=== PATIENT | female | born 1950 | race Caucasian/White ===

== ENCOUNTER → 2017-04-12 | Outpatient (CLI) | payer MEDICARE ==
[2017-04-12 15:13] LABS: Blood Urea Nitrogen 17 mg/dL (7-17)
== END | disposition home or self-care (01) ==
LOC: LABWHC1 14:44
PROVIDERS: ATTEND Otolaryngology
DX: H93.3X9 Disorders of unspecified acoustic nerve (principal); H93.19 Tinnitus, unspecified ear; H91.90 Unspecified hearing loss, unspecified ear; H91.92 Unspecified hearing loss, left ear; H70.90 Unspecified mastoiditis, unspecified ear
CPT/HCPCS: 36415; 82565; 84520

== ENCOUNTER → 2017-04-28 | Outpatient (CLI) | payer MEDICARE, OTHER ==
--- NOTE | 2017-04-28 09:51 | CT ---
EXAMINATION TYPE: CT iac wo con DATE OF EXAM: 04/28/2017 COMPARISON: NONE HISTORY: Lt ear ear infection 5 weeks ago with hearing loss CT DLP: 150 mGycm. Automated Exposure Control for Dose Reduction was Utilized. TECHNIQUE: CT scan of internal auditory canal is performed without contrast, thin cut axial images ar e obtained, coronal reformatted images are also reviewed. FINDINGS: The external auditory canals are patent bilaterally. Mastoid air cells show near complete opacification on the left with several air-fluid levels including involvement of the left petrous ape x. Right mastoid air cells show no suspicious opacification including pneumatized petrous apex. The m iddle ear ossicles are symmetric and unremarkable. There is evidence of surrounding soft tissue dens ity along superior, lateral, and inferior margin on the left seen best coronal images 88 through 90. The scutum is preserved bilaterally. The cochlea and the semicircular canals are symmetric and unre markable. Vestibular aqueduct and internal carotid canal appear unremarkable. Temporomandibular joints are maintained bilaterally. Visualized paranasal sinuses are grossly clear. Visualized portion brain parenchyma is felt within normal limits. IMPRESSION: Left-sided mastoiditis including involvement of petrous apex, some middle ear spread of i nfection is present.
== END | disposition home or self-care (01) ==
LOC: RADCTMAIN 08:53
PROVIDERS: ATTEND Otolaryngology
DX: H70.92 Unspecified mastoiditis, left ear (principal)
CPT/HCPCS: 70480

== ENCOUNTER → 2017-06-15 | Outpatient (CLI) | payer MEDICARE, OTHER ==
--- NOTE | 2017-06-15 09:43 | CT ---
EXAMINATION TYPE: CT iac wo con DATE OF EXAM: 06/15/2017 COMPARISON: 04/28/2017 HISTORY: Mastoiditis CT DLP: 142.7mGycm Automated exposure control for dose reduction was used. FINDINGS: The external auditory canals are patent bilaterally. Again noted is moderate opacification of the left-sided mastoid air cells essentially unchanged relative to the previous study. There is pe rsistent but improving opacification of the left petrous apex. Right-sided mastoid air cells are well -aerated at this time. Previously noted involvement of the left-sided attic with soft tissue surround ing the ossicular chain has resolved. The middle ear ossicles are symmetric and unremarkable. There is no evidence of suspicious surrounding soft tissue density to suggest cholesteatoma. The scutum is preserved bilaterally. The cochlea and the semicircular canals are symmetric and unremarkable. Ves tibular aqueduct and internal carotid canal appear unremarkable. Temporomandibular joints are mainta ined bilaterally. IMPRESSION: 1. Persistent features of left-sided mastoiditis. Persistent but improving opacification of the left petrous apex. 2.Previously noted involvement of the left-sided attic with soft tissue surrounding the ossicular roddy in has resolved.
== END | disposition home or self-care (01) ==
LOC: RADCTMAIN 09:11
PROVIDERS: ATTEND Otolaryngology
DX: H70.92 Unspecified mastoiditis, left ear (principal)
CPT/HCPCS: 70480

== ENCOUNTER → 2018-06-27 | Outpatient (CLI) | payer MEDICARE, OTHER ==
--- NOTE | 2018-06-28 08:58 | BD ---
EXAMINATION TYPE: Axial Bone Density DATE OF EXAM: 06/27/2018 COMPARISON: 2014 CLINICAL HISTORY: Age related osteoporosis Height: 5 FT 2 IN Weight: 145 FRAX RISK QUESTIONS: RISK FACTORS HISTORY OF: Active: YES Postmenopausal woman: AGE [age] Lost more than 2 inches in height since high school: YES MEDICATIONS: Additional Medications: DIARETIC, Additional History: EXAM MEASUREMENTS: Bone mineral densitometry was performed using the Crucell System. Bone mineral density as measured about the Lumbar spine is: ----- L1-L4(G/cm2): 1.174 T Score Values are as follows: ----- L2: -0.4 ----- L3: -1.1 ----- L4: 0.4 ----- L1-L4: -0.1 Bone mineral density has: DECREASED -2.7% SINCE STUDY OF 2014 Bone mineral density about the R hip (g/cm2): 0.757 Bone mineral density about the L hip (g/cm2): 0.819 T Score values are as follows: -----R Neck: -2.0 -----L Neck: -1.6 -----R Total: -1.7 -----L Total: -1.4 Bone mineral density has: DECREASED -5.3%SINCE STUDY OF 2014 IMPRESSION: Osteopenia (T Score between -2.5 and -1). There is slightly increased risk of fracture and the patient may be considered for treatment. Re-Screen 2-5 years. NOTE: T-SCORE=SD OF THE YOUNG ADULT MEAN.
--- NOTE | 2018-06-28 14:39 | MM ---
Reason for exam: screening (asymptomatic). Last mammogram was performed 3 years and 9 months ago. History: Patient is postmenopausal. Family history of breast cancer in sister at age 59. Took hormonal contraceptives for 15 years. Physical Findings: A clinical breast exam by your physician is recommended on an annual basis and results should be correlated with mammographic findings. MG 3D Screening Mammo W/Cad Bilateral CC and MLO view(s) were taken. Prior study comparison: September 27, 2014, bilateral MG screening mammo w CAD. December 20, 2008, bilateral diagnostic digital mammog. The breast tissue is heterogeneously dense. This may lower the sensitivity of mammography. No suspicious abnormality. No significant changes when compared with prior studies. ASSESSMENT: Negative, BI-RAD 1 RECOMMENDATION: Routine screening mammogram of both breasts in 1 year.
== END | disposition home or self-care (01) ==
LOC: RADMAMWWP 15:24
PROVIDERS: ATTEND Internal Medicine Geriatric Medicine
DX: Z12.31 Encounter for screening mammogram for malignant neoplasm of breast (principal); M85.851 Other specified disorders of bone density and structure, right thigh; M85.852 Other specified disorders of bone density and structure, left thigh; M85.88 Other specified disorders of bone density and structure, other site
CPT/HCPCS: 77063; 77067; 77080

== ENCOUNTER 2019-06-09 01:50 | Observation (INO) | payer MEDICARE, OTHER ==
--- NOTE | 2019-06-09 02:28 | ED ---
Chest Pain HPI - General Chief Complaint: Chest Pain Stated Complaint: Chest Pain Time Seen by Provider: 06/09/19 02:05 Source: patient, family Mode of arrival: wheelchair Limitations: no limitations - History of Present Illness Initial Comments: This patient is 68-year-old woman who was awakened from sleep approximately 1:30 this morning with severe substernal pain that she is describing as a tightness there. She states that the pain was severe she did not note any worsening or relieving factors. She also had an episode of vomiting and when the pain was not resolving decided to come here. She did take 481 mg aspirin at home before leaving there. The patient states that by the time she was here the pain had subsided. MD Complaint: chest pain Onset/Timin -: minutes(s) Onset: during rest, awoke with symptoms Pain Location: substernal Pain Radiation: none Severity: severe Quality: tightness Consistency: now resolved Improves With: nothing Worsens With: nothing Anginal Symptoms: vomiting, diaphoresis Treatments Prior to Arrival: aspirin - Related Data On Oral Contraceptives: No Home Medications Medication Instructions Recorded Confirmed Ibuprofen [Motrin] 200 - 400 mg PO HS PRN 04/18/15 07/16/15 Allergies Allergy/AdvReac Type Severity Reaction Status Date / Time codeine AdvReac Vomiting Verified 06/09/19 01:57 morphine AdvReac Vomiting Verified 06/09/19 01:57 Review of Systems ROS Statement: Those systems with pertinent positive or pertinent negative responses have been documented in the HPI. ROS Other: All systems not noted in ROS Statement are negative. Constitutional: Denies: fever, chills Respiratory: Denies: cough, dyspnea Cardiovascular: Reports: chest pain. Denies: palpitations, orthopnea, edema, syncope Gastrointestinal: Reports: nausea, vomiting. Denies: abdominal pain, diarrhea, hematemesis Genitourinary: Denies: dysuria, hematuria Musculoskeletal: Denies: back pain Skin: Denies: rash Neurological: Denies: headache, weakness, numbness EKG Findings - EKG Comments: EKG Findings:: T inversions in lead V2 V3. - EKG Results: EKG: interpreted by ERMD, sinus rhythm, normal axis, normal QRS Past Medical History Past Medical History: Osteoarthritis (OA) Additional Past Medical History / Comment(s): Slight RA, states has a sore throat from having Bronchitis one month ago. History of Any Multi-Drug Resistant Organisms: None Reported Past Surgical History: Section, Orthopedic Surgery, Tubal Ligation Additional Past Surgical History / Comment(s): 04/23/15LEFT CATARACT. Colonoscopy, cyst removed L hand ,Carpal Tunnel R hand, Retinal repair 1 yr. ago. Past Anesthesia/Blood Transfusion Reactions: Postoperative Nausea & Vomiting (PONV) Additional Past Anesthesia/Blood Transfusion Reaction / Comment(s): Severe N/V for approx. 12 hrs. after surgery. Past Psychological History: No Psychological Hx Reported Smoking Status: Former smoker Past Alcohol Use History: Rare Past Drug Use History: Marijuana - Past Family History Father Family Medical History: Cancer Additional Family Medical History / Comment(s): Pancreatic Mother Family Medical History: No Reported History General Exam Limitations: no limitations Course Vital Signs 06/09/19 06/09/19 06/09/19 01:54 02:05 02:09 Temperature 98.1 F Pulse Rate 65 58 L Respiratory 16 18 Rate Blood Pressure 171/88 169/86 169/86 O2 Sat by Pulse 94 L 98 98 Oximetry 06/09/19 06/09/19 06/09/19 02:10 02:20 02:30 Temperature Pulse Rate 57 L 66 59 L Respiratory 10 L 21 9 L Rate Blood Pressure 169/86 169/86 169/86 O2 Sat by Pulse 98 99 97 Oximetry 06/09/19 06/09/19 06/09/19 02:40 02:50 03:00 Temperature Pulse Rate 61 60 Respiratory 15 5 L Rate Blood Pressure 169/86 169/86 169/86 O2 Sat by Pulse 93 L 94 L Oximetry 06/09/19 06/09/19 06/09/19 03:10 03:20 03:30 Temperature Pulse Rate 59 L 58 L 60 Respiratory 7 L 16 9 L Rate Blood Pressure 169/86 169/86 169/86 O2 Sat by Pulse 95 95 95 Oximetry 06/09/19 06/09/19 06/09/19 03:40 03:50 04:00 Temperature Pulse Rate 60 58 L Respiratory 9 L 4 L Rate Blood Pressure 169/86 169/86 169/86 O2 Sat by Pulse 95 96 Oximetry 06/09/19 06/09/19 06/09/19 04:10 04:20 04:30 Temperature Pulse Rate 60 68 63 Respiratory 8 L 16 11 L Rate Blood Pressure 169/86 169/86 169/86 O2 Sat by Pulse 95 95 95 Oximetry 06/09/19 06/09/19 06/09/19 04:40 04:50 05:00 Temperature Pulse Rate 62 62 63 Respiratory 16 11 L 23 Rate Blood Pressure 169/86 169/86 169/86 O2 Sat by Pulse 96 95 94 L Oximetry 06/09/19 06/09/19 05:10 05:20 Temperature Pulse Rate 59 L 63 Respiratory 13 15 Rate Blood Pressure 169/86 169/86 O2 Sat by Pulse 95 95 Oximetry Chest Pain [facility] Patient is 68-year-old woman with episode of substernal chest pain associated with diaphoresis and nausea. Her symptoms have resolved and she remained symptom-free. The initial workup is negative. I discussed her case with her primary physician Dr. Zhang, who will admit for telemetry monitoring, serial cardiac enzymes and cardiology consultation. Disposition Clinical Impression: Chest pain Disposition: [facility] Condition: Good Referrals: Josué Zhang MD [Primary Care Provider] - 1-2 days
[2019-06-09 02:51] LABS: Basophils # (A) 0.1 k/uL (0-0.2); Basophils % (A) 1 %; Eosinophils # (A) 0.3 k/uL (0-0.7); Eosinophils % (A) 3 %; HCT 46.4 % (34.0-46.0); HGB 15.1 gm/dL (11.4-16.0); Lymphocytes # (A) 4.6 k/uL (1.0-4.8); Lymphocytes % (A) 56 %; MCH 31.2 pg (25.0-35.0); MCHC 32.7 g/dL (31.0-37.0); MCV 95.5 fL (80.0-100.0); Mean Platelet Volume 7.6; Monocytes # (A) 0.3 k/uL (0-1.0); Monocytes % (A) 4 %; Neutrophils # (A) 2.7 k/uL (1.3-7.7); Neutrophils % (A) 33 %; Platelet Count 236 k/uL (150-450); RBC 4.85 m/uL (3.80-5.40); RDW 12.6 % (11.5-15.5); WBC 8.2 k/uL (3.8-10.6)
--- NOTE | 2019-06-09 02:59 | XR ---
EXAMINATION TYPE: XR chest 2V DATE OF EXAM: 06/09/2019 COMPARISON: NONE HISTORY: Chest pain TECHNIQUE: 2 views FINDINGS: Heart and mediastinum are normal. Lungs are clear. Diaphragm is normal. Bony thorax is inta ct. There are chest leads. IMPRESSION: Normal chest.
[2019-06-09 03:03] LABS: Albumin 4.4 g/dL (3.5-5.0); Calcium 10.2 mg/dL (8.4-10.2); Potassium 3.7 mmol/L (3.5-5.1); Total Bilirubin 0.3 mg/dL (0.2-1.3); Total Protein 7.4 g/dL (6.3-8.2)
[2019-06-09 03:22] LABS: Partial Thromboplastin Time 21.9 sec (22.0-30.0); Prothrombin Time 10.6 sec (9.0-12.0)
[2019-06-09 03:25] LABS: D-Dimer 1.27 mg/L FEU (<0.60)
--- NOTE | 2019-06-09 05:13 | CT ---
EXAMINATION TYPE: CT chest angio for PE DATE OF EXAM: 06/09/2019 COMPARISON: None HISTORY: PE CT DLP: 326.4 mGycm Automated exposure control for dose reduction was used. CONTRAST: Performed with IV Contrast, patient injected with 70 mL of Isovue 370. There are 3-D post processed images. Heart appears normal in size. There is no pericardial effusion. There is some coronary artery calcifi cation. Thoracic aorta shows mild atheromatous change. The ascending aorta measures 3.6 cm. There is no dissection. There is no mediastinal adenopathy. There are no hilar masses. There is normal contras t opacification of the pulmonary arteries. There are no filling defects. The lungs are clear of consolidation. There is no evidence of a pulmonary mass. There is no pleural e ffusion. Upper abdominal soft tissues are intact. There are calcified multiple small gallstones. IMPRESSION: No evidence of pulmonary embolism. No evidence of any significant lung disease. Cholelithiasis.
[2019-06-09] MEDS ORDERED: NITROGLYCERIN SL TABS 0.4 MG TAB SUBLINGUAL PRN ×2 (06:08→08:45)
[2019-06-09] MEDS ORDERED: ATORVASTATIN 80 MG TAB PO STA ×2 (08:15→08:45)
--- NOTE | 2019-06-09 08:42 | US ---
EXAMINATION TYPE: US abdomen limited DATE OF EXAM: 06/09/2019 COMPARISON: NONE CLINICAL HISTORY: possible biliary colic, attention RUQ. EXAM MEASUREMENTS: Liver Length: 11.2 cm Gallbladder Wall: 0.2 cm CBD: 0.7 centimeters distally, however more proximally time bile duct measures 0.4 cm and is within normal limits. Right Kidney: 9.3 x 4.6 x 5.2cm Pancreas: Tail obscured by overlying bowel gas Liver: wnl Gallbladder: cholelithiasis Evidence for sonographic Morton's sign: no CBD: Prominent proximally however nondilated distally. Right Kidney: wnl IMPRESSION: There is cholelithiasis and distal common bile duct prominence, however no other evidence of acute cholecystitis. Follow-up HIDA scan with CCK could evaluate for biliary dyskinesia.
[2019-06-09] MEDS ORDERED: ALPRAZolam 0.5 MG TAB PO PRN (08:45)
[2019-06-09] MEDS ORDERED: ALPRAZolam 0.25 MG TAB PO PRN (08:45)
[2019-06-09] MEDS ORDERED: SODIUM CHLORIDE 0.9% 1,000 ML in EMPTY BAG 1 BAG IV ONE (08:45)
[2019-06-09] MEDS ORDERED: ASPIRIN 325 MG TAB PO STA (08:45)
--- NOTE | 2019-06-09 08:48 | P.CRDCN ---
History of Present Illness Consult date: 06/09/19 Requesting physician: Josué Zhang Consult reason: chest pain Chief complaint: Chest pain History of present illness: This is a 68-year-old female with documented history of hyperlipidemia , she stated that she had been placed on statins in the past but has not been taking them recently. She quit smoking approximately 30 years ago, no hypertension, no diabetes. Patient presented to the hospital with symptoms of midsternal chest tightness, she had radiation to her jaw and to bilateral arms. This lasted approximately 30 minutes in duration. According to the patient, she also experienced nausea and an episode of vomiting with this. Patient was seen in the emergency room by Dr. Jay. She takes no medications at home other than when necessary ibuprofen. Her EKG on presentation here showed a normal sinus rhythm with anterior lateral ST-T wave changes. Chest x-ray did not reveal any acute findings, CTA of the chest did not reveal any evidence of pulmonary embolism. Blood pressure on arrival here 168/86 with a heart rate in the 60s. This morning's blood pressure 122/70, 95% on room air. Laboratory data was reviewed, white blood cell count 8.2, hemoglobin 15.1, platelet count 236. D-dimer 1.2 sodium 138, potassium 3.7, chloride 103, CO2 27, BUN 23, creatinine 0.9. Magnesium 2.0 and initial troponin was 0.012. After the patient was seen and evaluated by Dr. Jay's recommendations were that the patient undergo cardiac catheterization today. This will be performed by Dr. Mehta. Past Medical History Past Medical History: Osteoarthritis (OA) Additional Past Medical History / Comment(s): Slight RA, states has a sore throat from having Bronchitis one month ago. History of Any Multi-Drug Resistant Organisms: None Reported Past Surgical History: Section, Orthopedic Surgery, Tubal Ligation Additional Past Surgical History / Comment(s): 04/23/15LEFT CATARACT. Colonoscopy, cyst removed L hand ,Carpal Tunnel R hand, Retinal repair 1 yr. ago. Past Anesthesia/Blood Transfusion Reactions: Postoperative Nausea & Vomiting (PONV) Additional Past Anesthesia/Blood Transfusion Reaction / Comment(s): Severe N/V for approx. 12 hrs. after surgery. Past Psychological History: No Psychological Hx Reported Smoking Status: Former smoker Past Alcohol Use History: Rare Past Drug Use History: Marijuana - Past Family History Father Family Medical History: Cancer Additional Family Medical History / Comment(s): Pancreatic Mother Family Medical History: No Reported History Medications and Allergies Home Medications Medication Instructions Recorded Confirmed Type Ibuprofen [Motrin] 200 - 400 mg PO HS PRN 04/18/15 06/09/19 History Triamterene-Hctz 37.5-25Mg 1 cap PO Q48H PRN 06/09/19 06/09/19 History [Dyazide 37.5-25 Capsule] Allergies Allergy/AdvReac Type Severity Reaction Status Date / Time codeine AdvReac Vomiting Verified 06/09/19 07:56 morphine AdvReac Vomiting Verified 06/09/19 07:56 Physical Exam Vitals: Vital Signs Temp Pulse Resp BP Pulse Ox 06/09/19 08:30 60 9 L 128/77 95 06/09/19 08:29 60 9 L 128/77 95 06/09/19 07:20 60 9 L 123/77 95 06/09/19 07:10 63 11 L 123/77 95 06/09/19 07:00 62 13 123/77 93 L 06/09/19 06:50 61 14 169/86 93 L 06/09/19 06:40 60 13 169/86 92 L 06/09/19 06:30 60 15 169/86 92 L 06/09/19 06:20 64 16 169/86 92 L 06/09/19 06:10 64 13 169/86 93 L 06/09/19 06:00 62 13 169/86 96 06/09/19 05:50 63 29 H 169/86 96 06/09/19 05:40 61 19 169/86 95 06/09/19 05:30 60 10 L 169/86 96 06/09/19 05:20 63 15 169/86 95 06/09/19 05:10 59 L 13 169/86 95 06/09/19 05:00 63 23 169/86 94 L 06/09/19 04:50 62 11 L 169/86 95 06/09/19 04:40 62 16 169/86 96 06/09/19 04:30 63 11 L 169/86 95 06/09/19 04:20 68 16 169/86 95 06/09/19 04:10 60 8 L 169/86 95 06/09/19 04:00 169/86 06/09/19 03:50 58 L 4 L 169/86 96 06/09/19 03:40 60 9 L 169/86 95 06/09/19 03:30 60 9 L 169/86 95 06/09/19 03:20 58 L 16 169/86 95 06/09/19 03:10 59 L 7 L 169/86 95 06/09/19 03:00 60 5 L 169/86 94 L 06/09/19 02:50 61 15 169/86 93 L 06/09/19 02:40 169/86 06/09/19 02:30 59 L 9 L 169/86 97 06/09/19 02:20 66 21 169/86 99 06/09/19 02:10 57 L 10 L 169/86 98 06/09/19 02:09 58 L 18 169/86 98 06/09/19 02:05 169/86 98 06/09/19 01:54 98.1 F 65 16 171/88 94 L Intake and Output 06/08/19 06/09/19 06/09/19 22:59 06:59 14:59 Other: Weight 73.936 kg PHYSICAL EXAMINATION: GENERAL: 68-year-old female in no acute distress at the time of examination HEENT: Head is atraumatic, normocephalic. Pupils equal, round. Sclera anicteric. Conjunctiva are clear. Mucous membranes of the mouth are moist. Neck is supple. There is no elevated jugular venous pressure. No carotid bruit is heard. HEART EXAMINATION: Heart S1, S2 normal. No murmur or gallop heard. CHEST EXAMINATION: Lungs are clear to auscultation and precussion. No chest wall tenderness is noted on palpation or with deep breathing. ABDOMEN: Soft, nontender. Bowel sounds are heard. No organomegaly noted. EXTREMITIES: 2+ peripheral pulses with no evidence of peripheral edema and no calf tenderness noted. NEUROLOGIC patient is awake, alert and oriented 3 . . Results 06/09/19 02:15 06/09/19 02:15 Cardiac Enzymes 06/09/19 06/09/19 Range/Units 02:15 02:15 AST 28 (14-36) U/L Troponin I <0.012 (0.000-0.034) ng/mL Coagulation 06/09/19 Range/Units 02:15 PT 10.6 (9.0-12.0) sec APTT 21.9 L (22.0-30.0) sec CBC 06/09/19 Range/Units 02:15 WBC 8.2 (3.8-10.6) k/uL RBC 4.85 (3.80-5.40) m/uL Hgb 15.1 (11.4-16.0) gm/dL Hct 46.4 H (34.0-46.0) % Plt Count 236 (150-450) k/uL Comprehensive Metabolic Panel 06/09/19 Range/Units 02:15 Sodium 138 (137-145) mmol/L Potassium 3.7 (3.5-5.1) mmol/L Chloride 103 (98-107) mmol/L Carbon Dioxide 27 (22-30) mmol/L BUN 23 H (7-17) mg/dL Creatinine 0.91 (0.52-1.04) mg/dL Glucose 101 H (74-99) mg/dL Calcium 10.2 (8.4-10.2) mg/dL AST 28 (14-36) U/L ALT 16 (4-34) U/L Alkaline Phosphatase 78 (38-126) U/L Total Protein 7.4 (6.3-8.2) g/dL Albumin 4.4 (3.5-5.0) g/dL Current Medications Generic Name Dose Route Start Last Admin Trade Name Freq PRN Reason Stop Dose Admin Aspirin 325 mg 06/10/19 09:00 Aspirin PO DAILY [facility] Metoprolol Tartrate 25 mg 06/09/19 09:00 Lopressor PO BID [facility] Nitroglycerin 0.4 mg 06/09/19 06:08 Nitrostat SUBLINGUAL Q5M PRN Chest Pain Intake and Output 06/08/19 06/09/19 06/09/19 22:59 06:59 14:59 Other: Weight 73.936 kg 06/09/19 02:15 06/09/19 02:15 EKG Interpretations (text) EKG on presentation here showed a normal sinus rhythm with ST-T wave changes noted in the anterior lateral leads Assessment and Plan Plan: Assessment and plan #1 symptoms of midsternal chest tightness with radiation to the Josué bilateral arms, associated nausea and vomiting. Suggestive of possible angina. Initial troponin negative. EKG shows a normal sinus rhythm with ST-T wave changes noted in the anterior lateral leads #2 hyperlipidemia, untreated Plan We will obtain an echocardiogram with Doppler study. Patient is currently on aspirin, we will add Lipitor and beta gwyn to her medication regime. Patient has been advised to undergo cardiac catheterization, risks and benefits explained to the patient in detail, this will be performed today by Dr. Mehta. Further recommendations will be based on these findings and the patient's overall clinical course. DNP note has been reviewed, I agree with a documented findings and plan of care. Patient was seen and examined.
[2019-06-09] MEDS: METOPROLOL TARTRATE 25 MG TAB PO SCH ×2 (12:53→20:28)
--- NOTE | 2019-06-09 14:18 | P.HPIM ---
History of Present Illness H&P Date: 06/09/19 Chief Complaint: Chest pain This is a 68-year-old female patient of Dr. Dr. Zhang with past medical history of hyperlipidemia, generalized osteoarthritis, remote history of tobacco use. Patient states she was feeling fine before she went to bed but then awoke at 1:15 this morning and experienced chest pain to the midsternal lower sternal area that radiated to her right jaw and right arm. She took 4 baby aspirins but then vomited after that. 4 years ago she had similar symptoms but it did not last very long and she did not have any treatment or evaluation a t that time. She denies any abdominal pain. She denies any fried foods for supper. Patient came into [facility] emergency center for evaluation. She was found to be afebrile, heart rate 65, blood pressure 171/88, pulse ox 94% on room air. EKG normal sinus rhythm with T-wave changes in the anterior leads. CBC unremarkable, d-dimer 1.27, BUN 23 and creatinine 0.91. Electrolytes and liver function tests within normal limits. Troponin negative on initial draw. COVID-19 testing negative. Chest x-ray was normal. A CTA of the chest showed no pulmonary embolism. No significant lung disease. Cholelithiasis. Abdominal ultrasound has been ordered an echocardiogram, patient placed on the cardiac stepdown unit and cardiology consult requested as well as repeat troponins. Abdominal ultrasound reveals cholelithiasis and distal common bile duct prominence. No evidence of acute cholecystitis. Review of Systems Constitutional: Denies chills, Denies fatigue, Denies fever, Denies lethargy, Denies malaise, Denies poor appetite, Denies weakness Eyes: denies blurred vision, denies pain Ears, nose, mouth and throat: Denies dysphagia, Denies headache, Denies nasal congestion, Denies nasal discharge, Denies sore throat, Denies vertigo Cardiovascular: Reports chest pain, Denies decreased exercise tolerance, Denies dyspnea on exertion, Denies edema, Denies leg edema, Denies lightheadedness, Denies orthopnea, Denies palpitations, Denies paroxysmal nocturnal dyspnea, Denies shortness of breath, Denies syncope Respiratory: Denies cough, Denies cough with sputum, Denies dyspnea, Denies excessive sputum, Denies hemoptysis, Denies home oxygen, Denies respiratory infections, Denies sleep apnea, Denies wheezing Gastrointestinal: Denies abdominal pain, Denies diarrhea, Denies loss of appetite, Denies nausea, Denies vomiting Genitourinary: Denies dysuria, Denies hematuria, Denies urgency, Denies urinary frequency Musculoskeletal: Denies frequent falls, Denies gait dysfunction, Denies muscle weakness, Denies myalgias Integumentary: Denies pruritus, Denies rash, Denies wounds Neurological: Denies change in mentation, Denies change in speech, Denies gait dysfunction, Denies numbness, Denies seizures, Denies weakness Psychiatric: Denies anxiety, Denies depression Endocrine: Denies fatigue, Denies weight change Past Medical History Past Medical History: Hyperlipidemia, Osteoarthritis (OA) History of Any Multi-Drug Resistant Organisms: None Reported Past Surgical History: Section, Orthopedic Surgery, Tubal Ligation Additional Past Surgical History / Comment(s): 04/23/15LEFT CATARACT. Colonoscopy, cyst removed L hand ,Carpal Tunnel R hand, Retinal repair 1 yr. ago. Past Anesthesia/Blood Transfusion Reactions: Postoperative Nausea & Vomiting (PONV) Additional Past Anesthesia/Blood Transfusion Reaction / Comment(s): Severe N/V for approx. 12 hrs. after surgery. Past Psychological History: No Psychological Hx Reported Smoking Status: Former smoker Past Alcohol Use History: Rare Additional Past Alcohol Use History / Comment(s): Patient was a smoker one pack per day for about 20 years and quit 20-30 years ago. Rare alcohol use. Patient lives at home with her . Past Drug Use History: Marijuana - Past Family History Father Family Medical History: Cancer Additional Family Medical History / Comment(s): Father at age 57 from pancreatic cancer. Mother Family Medical History: No Reported History Additional Family Medical History / Comment(s): Mother is alive at age 95 with history of diabetes, coronary artery disease status post stent. Currently residing at [facility]. Brother(s) Additional Family Medical History / Comment(s): Patient is 3 brothers with no m ajor medical problems. Patient has 2 sisters with dementia. Patient's 3 children with no major medical problems. Medications and Allergies Home Medications Medication Instructions Recorded Confirmed Type Ibuprofen [Motrin] 200 - 400 mg PO HS PRN 03/10/16 05/01/20 History Triamterene-Hctz 37.5-25Mg 1 cap PO Q48H PRN 06/09/19 06/09/19 History [Dyazide 37.5-25 Capsule] Allergies Allergy/AdvReac Type Severity Reaction Status Date / Time codeine AdvReac Vomiting Verified 06/09/19 07:56 morphine AdvReac Vomiting Verified 06/09/19 07:56 Physical Exam Vitals: Vital Signs Temp Pulse Resp BP Pulse Ox 06/09/19 07:20 60 9 L 123/77 95 06/09/19 07:10 63 11 L 123/77 95 06/09/19 07:00 62 13 123/77 93 L 06/09/19 06:50 61 14 169/86 93 L 06/09/19 06:40 60 13 169/86 92 L 06/09/19 06:30 60 15 169/86 92 L 06/09/19 06:20 64 16 169/86 92 L 06/09/19 06:10 64 13 169/86 93 L 06/09/19 06:00 62 13 169/86 96 06/09/19 05:50 63 29 H 169/86 96 06/09/19 05:40 61 19 169/86 95 06/09/19 05:30 60 10 L 169/86 96 06/09/19 05:20 63 15 169/86 95 06/09/19 05:10 59 L 13 169/86 95 06/09/19 05:00 63 23 169/86 94 L 06/09/19 04:50 62 11 L 169/86 95 06/09/19 04:40 62 16 169/86 96 06/09/19 04:30 63 11 L 169/86 95 06/09/19 04:20 68 16 169/86 95 06/09/19 04:10 60 8 L 169/86 95 06/09/19 04:00 169/86 06/09/19 03:50 58 L 4 L 169/86 96 06/09/19 03:40 60 9 L 169/86 95 06/09/19 03:30 60 9 L 169/86 95 06/09/19 03:20 58 L 16 169/86 95 06/09/19 03:10 59 L 7 L 169/86 95 06/09/19 03:00 60 5 L 169/86 94 L 06/09/19 02:50 61 15 169/86 93 L 06/09/19 02:40 169/86 06/09/19 02:30 59 L 9 L 169/86 97 06/09/19 02:20 66 21 169/86 99 06/09/19 02:10 57 L 10 L 169/86 98 06/09/19 02:09 58 L 18 169/86 98 06/09/19 02:05 169/86 98 06/09/19 01:54 98.1 F 65 16 171/88 94 L Intake and Output 06/08/19 06/09/19 06/09/19 22:59 06:59 14:59 Other: Weight 73.936 kg Gen: This is a 68-year-old female. Patient is sitting up in bed and appears to be comfortable and in no acute distress. HEENT: Head is atraumatic, normocephalic. Pupils equal, round. Sclerae is anicteric. NECK: Supple. No JVD. No lymphadenopathy. No thyromegaly. LUNGS: Clear to auscultation. No wheezes or rhonchi. No intercostal retractions. HEART: Regular rate and rhythm. No murmur. ABDOMEN: Soft. Bowel sounds are present. No masses. No tenderness. EXTREMITIES: No pedal edema. No calf tenderness. Dorsalis pedis +2 bilaterally. NEUROLOGICAL: Patient is awake, alert and oriented x3. Cranial nerves 2 through 12 are grossly intact. Results CBC & Chem 7: 06/09/19 02:15 06/09/19 02:15 Labs: Abnormal Lab Results - Last 24 Hours (Table) 06/09/19 06/09/19 06/09/19 Range/Units 02:15 02:15 02:15 Hct 46.4 H (34.0-46.0) % APTT 21.9 L (22.0-30.0) sec D-Dimer 1.27 H (<0.60) mg/L FEU BUN 23 H (7-17) mg/dL Glucose 101 H (74-99) mg/dL Assessment and Plan Plan: 1. Chest pain, rule out acute coronary syndrome. Patient placed on the cardiac stepdown unit, serial troponins, cardiology consult, echocardiogram. Patient is scheduled for heart catheterization with Dr. Mehta. Continue aspirin, Lipitor, Lopressor. 2. Hyperlipidemia. Atorvastatin 40 mg daily. 3. Generalized osteoarthritis, stable. 4. Remote history of tobacco use. Patient placed as an observation status. Discharge plan: Return home Impression and plan of care have been directed as dictated by the signing physician. Vickie Kemp nurse practitioner acting as scribe for signing physician.
[2019-06-09] MEDS: ATORVASTATIN 40 MG TAB PO SCH ×2 (14:21→20:28)
[2019-06-09 21:18] VITALS: RESP 18
[2019-06-10 05:24] LABS: Cholesterol 269 mg/dL (<200); HDL Cholesterol 59 mg/dL (40-60); LDL Cholesterol,Calculated 185 mg/dL (0-99); Triglycerides 124 mg/dL (<150)
[2019-06-10] MEDS ORDERED: ATORVASTATIN 80 MG TAB PO ONE (06:00)
[2019-06-10] MEDS ORDERED: ASPIRIN 325 MG TAB PO ONE (06:00)
[2019-06-10] MEDS: METOPROLOL TARTRATE 25 MG TAB PO SCH (06:07)
[2019-06-10] MEDS ORDERED: IV FLUID CONTINUATION 1,000 ML IV ONE (07:54)
[2019-06-10] MEDS ORDERED: fentaNYL (PF) 50 MCG/ML 2 ML AMP ONE (08:04)
[2019-06-10] MEDS ORDERED: VERAPAMIL 2.5 MG/ML 2 ML AMP ONE (08:04)
[2019-06-10] MEDS ORDERED: HEPARIN SODIUM 1,000 UN/ML (10ML VL) ONE (08:04)
[2019-06-10] MEDS ORDERED: LIDOCAINE 1% INJ 10MG/ML (20 ML MDV) ONE (08:04)
[2019-06-10] MEDS ORDERED: fentaNYL (PF) 50 MCG/ML 2 ML AMP IV ONE (08:25)
[2019-06-10] MEDS ORDERED: MIDAZOLAM 2 MG/2 ML VIAL IV ONE (08:26)
[2019-06-10] MEDS ORDERED: LIDOCAINE 1% INJ 10MG/ML (20 ML MDV) SQ ONE (08:26)
[2019-06-10] MEDS ORDERED: VERAPAMIL SYRINGE (5 MG/10 ML) INTRAARTER ONE (08:30)
[2019-06-10] MEDS ORDERED: IOPAMIDOL-370 125ML BTL INJ ONE (08:39)
[2019-06-10] MEDS ORDERED: RX INFO: IV CONTRAST WAS GIVEN 1 EACH MISC MISCELLANE PRN (08:47)
--- NOTE | 2019-06-10 08:56 | P.CARDCATH ---
Date of Procedure: 06/10/19 Preoperative Diagnosis: Unstable angina Postoperative Diagnosis: Minimal coronary artery disease Procedure(s) Performed: Left heart catheterization without left ventriculography Description of Procedure: HISTORY: This is a 68-year-old female who was admitted to the hospital with complaints of prolonged chest pain with nonspecific ST-T changes. Patient was advised to have cardiac catheterization for definitive diagnosis. Troponins are negative CONSENT:I have discussed the risks, benefits and alternative therapies for the above-mentioned procedure and for both sedation/analgesia as well as necessary blood product administration, if indicated, as they pertain to this patient. The patient has indicated understanding and acceptance of the risks and procedures discussed. PROCEDURE: Patient was brought to the lab in a fasting state. Patient was given some IV sedation. The right wrist is infiltrated with lidocaine and right radial artery was entered using Seldinger technique. A 6-Albanian catheter was left in place and selective coronary arteriography was performed. Patient tolerated the procedure well. TR band was applied for hemostasis. No immediate complications were noted and patient was transferred to telemetry unit in a stable condition Conscious Sedation: Versed 1mg Fentanyl 50 g Duration 16 minutes HEMODYNAMICS: The aortic pressure is about 140/70. The left ventricle end- diastolic pressure is 5-10. There was no gradient across the aortic valve SELECTIVE CORONARY ARTERIOGRAPHY: LEFT MAIN: This is normal in length and patent without obstructive disease THE LEFT ANTERIOR DESCENDING CORONARY ARTERY:. This is a caliber vessel giving rise to good-sized first diagonal branch. Minimal intimal plaque noted. No significant obstructive disease noted THE LEFT CIRCUMFLEX AND IS CORONARY ARTERY:. This is a fair caliber vessel and showing mild intimal plaque in proximal portion and nondominant in distribution, free of occlusive THE RIGHT CORONARY ARTERY: Dominant vessel giving rise to PDA and PLV .Shows mild calcification and mild plaque in the proximal and midportion. No Sigmund obstructive disease LEFT VENTRICULOGRAPHY:. Not performed FINAL IMPRESSION:. Minimal plaque and calcification without any critical lesions PLAN: Ask medical therapy and this factor modification PROGNOSIS: Fair
[2019-06-10] MEDS ORDERED: ASPIRIN 325 MG TAB PO SCH ×2 (09:00)
[2019-06-10] MEDS ORDERED: SODIUM CHLORIDE 0.9% 1,000 ML IV SCH (09:00)
--- NOTE | 2019-06-10 10:12 | P.DS ---
Providers Date of admission: 06/09/19 06:11 Expected date of discharge: 06/10/19 Attending physician: Josué Zhang Consults: 06/09/19 06:08 Consult Physician Routine Consulting Provider: Haseeb Mehta Consult Reason/Comments: chest pain Do you want consulting provider notified?: Yes Primary care physician: [facility] Hospital Course: This is a 68-year-old female patient of Dr. Dr. Zhang with past medical history of hyperlipidemia, generalized osteoarthritis, remote history of tobacco use. Patient states she was feeling fine before she went to bed but then awoke at 1:15 this morning and experienced chest pain to the midsternal lower sternal area that radiated to her right jaw and right arm. She took 4 baby aspirins but then vomited after that. 4 years ago she had similar symptoms but it did not last very long and she did not have any treatment or evaluation at that time. She denies any abdominal pain. She denies any fried foods for supper. Patient came into [facility] emergency center for evaluation. She was found to be afebrile, heart rate 65, blood pressure 171/88, pulse ox 94% on room air. EKG normal sinus rhythm with T-wave changes in the anterior leads. CBC unremarkable, d-dimer 1.27, BUN 23 and creatinine 0.91. Electrolytes and liver function tests within normal limits. Troponin negative on initial draw. COVID-19 testing negative. Chest x-ray was normal. A CTA of the chest showed no pulmonary embolism. No significant lung disease. Cholelithiasis. Abdominal ultrasound has been ordered an echocardiogram, patient placed on the cardiac stepdown unit and cardiology consult requested as well as repeat troponins. Abdominal ultrasound reveals cholelithiasis and distal common bile duct prominence. No evidence of acute cholecystitis. 06/09: Patient underwent heart catheterization this morning with Dr. Mehta the found mild coronary artery disease and recommendations for medical management. Patient denies having any chest pain, shortness of breath, no radiation of pain to the neck or arms. She has no edema. Heart rate in the 50s, afebrile, blood pressure 123/60, pulse ox 91-97% on room air. Troponins negative on 3 draws The patient will be discharged home later today in stable condition. Discharge diagnoses: 1. Chest pain, ruled out acute coronary syndrome. 2. Hyperlipidemia. 3. Generalized osteoarthritis, stable. 4. Remote history of tobacco use. 5. COVID-19 infection not present Discharge plan: home Impression and plan of care have been directed as dictated by the signing physician. Vickie Kemp nurse practitioner acting as scribe for signing physician. Patient Condition at Discharge: Good Plan - Discharge Summary Discharge Rx Participant: Yes New Discharge Prescriptions: New Aspirin 81 mg PO HS chew Atorvastatin [Lipitor] 40 mg PO HS #30 tab Metoprolol Tartrate [Lopressor] 12.5 mg PO BID #60 dose Continue Ibuprofen [Motrin] 200 - 400 mg PO HS PRN PRN Reason: Hot flashes Discontinued Triamterene-Hctz 37.5-25Mg [Dyazide 37.5-25 Capsule] 1 cap PO Q48H PRN PRN Reason: CONGESTION & CLOGGED EARS Discharge Medication List Ibuprofen [Motrin] 200 - 400 mg PO HS PRN 04/18/15 [History] Aspirin 81 mg PO HS chew 06/10/19 [Rx] Atorvastatin [Lipitor] 40 mg PO HS #30 tab 06/10/19 [Rx] Metoprolol Tartrate [Lopressor] 12.5 mg PO BID #60 dose 06/10/19 [Rx] Follow up Appointment(s)/Referral(s): Champ Jay MD [STAFF PHYSICIAN] - 2 Weeks Josué Zhang MD [Primary Care Provider] - 1 Week Discharge Disposition: HOME SELF-CARE
--- NOTE | 2019-06-10 11:48 | ECHOF ---
Referral Reason:chest pain MEASUREMENTS -------- HEIGHT: 162.6 cm WEIGHT: 73.9 kg BP: 128/77 RVIDd: 3.2 cm (< 3.3) IVSd: 1.1 cm (0.6 - 1.1) LVIDd: 3.5 cm (3.9 - 5.3) LVPWd: 1.2 cm (0.6 - 1.1) IVSs: 1.9 cm LVIDs: 2.3 cm LVPWs: 1.1 cm LAESV Index (A-L): 17.25 ml/m Ao Diam: 2.3 cm (2.0 - 3.7) AV Cusp: 1.8 cm (1.5 - 2.6) MV EXCURSION: 11.844 mm (> 18.000) MV EF SLOPE: 72 mm/s (70 - 150) EPSS: 0.3 cm MV E Ole: 0.56 m/s MV DecT: 327 ms MV A Ole: 0.84 m/s MV E/A Ratio: 0.67 RAP: 5.00 mmHg RVSP: 24.48 mmHg FINDINGS -------- Sinus rhythm. This was a technically adequate study. The left ventricular size is normal. There is borderline concentric left ventricular hypertrophy. Overall left ventricular systolic function is normal with, an EF between 55 - 60 %. The diastolic filling pattern is normal for the age of the patient 8.34. The right ventricle is normal in size. Normal LA size by volume 22+/-6 ml/m2. The right atrial size is normal. Interatrial and interventricular septum intact. There is mild aortic valve sclerosis. There is no evidence of aortic regurgitation. There is no e vidence of aortic stenosis. No mitral regurgitation. Mild tricuspid regurgitation present. There is no evidence of pulmonary hypertension. The right v entricular systolic pressure, as measured by Doppler, is 24.48mmHg. Trace/mild (physiologic) pulmonic regurgitation. The aortic root size is normal. Normal inferior vena cava with normal inspiratory collapse consistent with estimated right atrial pre ssure of 5 mmHg. There is no pericardial effusion. CONCLUSIONS -------- 1. Sinus rhythm. 2. This was a technically adequate study. 3. The left ventricular size is normal. 4. There is borderline concentric left ventricular hypertrophy. 5. Overall left ventricular systolic function is normal with, an EF between 55 - 60 %. 6. The diastolic filling pattern is normal for the age of the patient 8.34 7. The right ventricle is normal in size. 8. Normal LA size by volume 22+/-6 ml/m2. 9. The right atrial size is normal. 10. Interatrial and interventricular septum intact. 11. There is mild aortic valve sclerosis. 12. There is no evidence of aortic regurgitation. 13. There is no evidence of aortic stenosis. 14. No mitral regurgitation. 15. Mild tricuspid regurgitation present. 16. There is no evidence of pulmonary hypertension. 17. The right ventricular systolic pressure, as measured by Doppler, is 24.48mmHg. 18. Trace/mild (physiologic) pulmonic regurgitation. 19. The aortic root size is normal. 20. Normal inferior vena cava with normal inspiratory collapse consistent with estimated right atrial pressure of 5 mmHg. 21. There is no pericardial effusion. [employer]: Thu Shelton RDCS
[2019-06-10 15:25] VITALS: BP 123/75; PULSE 61; TEMP 98.3
[2019-06-10] MEDS ORDERED: ASPIRIN 81 MG PO SCH (21:00)
[2019-06-11] MEDS ORDERED: ASPIRIN 325 MG TAB PO SCH (09:00)
== END 2019-06-10 16:32 | disposition home or self-care (01) ==
LOC: EC 01:50 → 3SCARD 06:11
PROVIDERS: ADMIT Internal Medicine Geriatric Medicine; ATTEND Internal Medicine Geriatric Medicine
DX: R07.2 Precordial pain (principal); E78.5 Hyperlipidemia, unspecified; R11.2 Nausea with vomiting, unspecified; R61 Generalized hyperhidrosis; Z03.818 Encounter for observation for suspected exposure to other biological agents ruled out; M15.9 Polyosteoarthritis, unspecified; I25.110 Atherosclerotic heart disease of native coronary artery with unstable angina pectoris; Z79.1 Long term (current) use of non-steroidal anti-inflammatories (NSAID); Z88.5 Allergy status to narcotic agent; Z87.09 Personal history of other diseases of the respiratory system; M06.9 Rheumatoid arthritis, unspecified; K80.20 Calculus of gallbladder without cholecystitis without obstruction; Z87.891 Personal history of nicotine dependence; Z79.899 Other long term (current) drug therapy; Z80.0 Family history of malignant neoplasm of digestive organs; Z83.3 Family history of diabetes mellitus; Z82.49 Family history of ischemic heart disease and other diseases of the circulatory system; Z81.8 Family history of other mental and behavioral disorders
CPT/HCPCS: 93005 ×2; 99285; 36415; 93306; 93458; 85379; 80061; 80053; 83735; 84484; 85025; 85610; 85730; 87635; 71046; 76705; 71275; G0378 ×2; C1769; C1894; J2250; J2001; J3010; Q9967 ×2

== ENCOUNTER → 2019-09-11 | Outpatient (CLI) | payer MEDICARE, OTHER ==
[2019-09-11 17:16] LABS: African American GFR (CKD) 75.6 (60.0-200.0); Albumin 4.5 g/dL (3.80-4.90); Albumin/Globulin Ratio 2.05 (1.60-3.17); Anion Gap 3.9 mmol/L (4.00-12.00); BUN/Creat Ratio 21.11 Ratio (12.00-20.00); Carbon Dioxide 30.1 mmol/L (21.6-31.8); Chol/HDL Ratio 2.8; Globulin 2.2 g/dL (1.6-3.3); LDL Cholesterol,Calculated 78.8 mg/dL (0.0-131.0); Non-African American GFR(CKD) 65.2 (60.0-200.0); Potassium 4.3 mmol/L (3.5-5.5); Total Bilirubin 0.6 mg/dL (0.2-1.2); Total Protein 6.7 g/dL (6.2-8.2); VLDL Calculation 22.2 mg/dL (5.00-40.00)
== END | disposition home or self-care (01) ==
LOC: LABWHC1 08:52
PROVIDERS: ATTEND Internal Medicine Clinical Cardiac Electrophysiology
DX: I10 Essential (primary) hypertension (principal); E78.00 Pure hypercholesterolemia, unspecified
CPT/HCPCS: 36415; 80053; 80061

== ENCOUNTER 2020-07-23 18:35 | Emergency (ER) | payer MEDICARE, OTHER ==
[2020-07-23] MEDS ORDERED: PANTOPRAZOLE 40 MG/10 ML VIAL IVP STA (18:53)
[2020-07-23] MEDS ORDERED: MAG HYDROX/AL HYDROX/SIMETH 30 ML, HYOSCYAMINE ELIXIR 10 ML, LIDOCAINE VISCOUS 2% 10 ML PO STA ×3 (18:54)
--- NOTE | 2020-07-23 19:23 | XR ---
EXAMINATION TYPE: XR chest 2V DATE OF EXAM: 07/23/2020 COMPARISON: Prior chest x-ray and CTA chest June 09, 2019. HISTORY: Chest pain TECHNIQUE: Frontal and lateral views of the chest are obtained. FINDINGS: There is mild chronic parenchymal change without suspicious focal air space opacity, pleur al effusion, or pneumothorax seen. The cardiac silhouette size is stable and within normal limits. M ultilevel spurring in the thoracic spine. IMPRESSION: No acute cardiopulmonary process.
[2020-07-23 19:28] LABS: Basophils # (A) 0.1 k/uL (0-0.2); Basophils % (A) 1 %; Eosinophils # (A) 0.3 k/uL (0-0.7); Eosinophils % (A) 4 %; HCT 42.2 % (34.0-46.0); HGB 13.9 gm/dL (11.4-16.0); Lymphocytes # (A) 4.7 k/uL (1.0-4.8); Lymphocytes % (A) 50 %; MCH 31.6 pg (25.0-35.0); MCHC 32.9 g/dL (31.0-37.0); Mean Platelet Volume 7.3; Monocytes # (A) 0.4 k/uL (0-1.0); Monocytes % (A) 4 %; Neutrophils # (A) 3.7 k/uL (1.3-7.7); Neutrophils % (A) 40 %; Platelet Count 202 k/uL (150-450); WBC 9.3 k/uL (3.8-10.6)
--- NOTE | 2020-07-23 19:29 | ED ---
General Adult HPI - General Source: patient, RN notes reviewed, old records reviewed Mode of arrival: wheelchair Limitations: no limitations <Glen Reddy - Last Filed: 07/23/20 19:27> <Bronson Galeana - Last Filed: 07/23/20 22:18> - General Chief complaint: Chest Pain Stated complaint: chest pain Time Seen by Provider: 07/23/20 18:45 - History of Present Illness Initial comments: 69-year-old female presenting with lower chest pain, epigastric pain which began about an hour prior to arrival. Patient has had 5 episodes of pain which seemed the last several minutes. She has no known history of coronary artery disease. She does have a history of previous cholecystectomy. She denies associated dyspnea. She had a heart catheterization approximately one year ago which was reported as normal. No lower extremity pain or swelling. She did have an alcoholic beverage prior to the onset of this. (Glen Reddy) - Related Data Home Medications Medication Instructions Recorded Confirmed Ibuprofen [Motrin] 200 - 400 mg PO BID 04/18/15 07/23/20 Atorvastatin [Lipitor] 40 mg PO DAILY 07/23/20 07/23/20 Losartan Potassium [Cozaar] 25 mg PO DAILY 07/23/20 07/23/20 Allergies Allergy/AdvReac Type Severity Reaction Status Date / Time codeine AdvReac Vomiting Verified 07/23/20 19:38 morphine AdvReac Vomiting Verified 07/23/20 19:38 Review of Systems ROS Other: All systems not noted in ROS Statement are negative. <Glen Reddy - Last Filed: 07/23/20 19:27> ROS Other: All systems not noted in ROS Statement are negative. <Bronson Galeana - Last Filed: 07/23/20 22:18> ROS Statement: Those systems with pertinent positive or pertinent negative responses have been documented in the HPI. Past Medical History Past Medical History: Osteoarthritis (OA) Additional Past Medical History / Comment(s): Slight RA, states has a sore throat from having Bronchitis one month ago. History of Any Multi-Drug Resistant Organisms: None Reported Past Surgical History: Section, Orthopedic Surgery, Tubal Ligation Additional Past Surgical History / Comment(s): 04/23/15LEFT CATARACT. Colonoscopy, cyst removed L hand ,Carpal Tunnel R hand, Retinal repair 1 yr. ago. Past Anesthesia/Blood Transfusion Reactions: Postoperative Nausea & Vomiting (PONV) Additional Past Anesthesia/Blood Transfusion Reaction / Comment(s): Severe N/V for approx. 12 hrs. after surgery. Past Psychological History: No Psychological Hx Reported Smoking Status: Former smoker Past Alcohol Use History: Rare Past Drug Use History: Marijuana - Past Family History Father Family Medical History: Cancer Additional Family Medical History / Comment(s): Pancreatic Mother Family Medical History: No Reported History Additional Family Medical History / Comment(s): Mother is alive at age 95 with history of diabetes, coronary artery disease status post stent. Currently residing at [facility]. Brother(s) Additional Family Medical History / Comment(s): Patient is 3 brothers with no major medical problems. Patient has 2 sisters with dementia. Patient's 3 children with no major medical problems. <Glen Reddy N - Last Filed: 07/23/20 19:27> General Exam Limitations: no limitations General appearance: alert, in no apparent distress Head exam: Present: atraumatic, normocephalic Eye exam: Present: normal appearance, PERRL ENT exam: Present: normal exam Neck exam: Present: normal inspection. Absent: tenderness, meningismus Respiratory exam: Present: normal lung sounds bilaterally. Absent: respiratory distress, wheezes Cardiovascular Exam: Present: regular rate, normal rhythm GI/Abdominal exam: Present: tenderness (Mild epigastric tenderness) Extremities exam: Present: normal inspection, normal capillary refill. Absent: pedal edema Neurological exam: Present: alert, oriented X3, CN II-XII intact. Absent: motor sensory deficit Psychiatric exam: Present: normal affect, normal mood Skin exam: Present: warm, dry, intact. Absent: cyanosis, diaphoretic <Glen Reddy N - Last Filed: 07/23/20 19:27> General appearance: alert, in no apparent distress, anxious Head exam: Present: atraumatic, normocephalic, normal inspection Eye exam: Present: normal appearance, PERRL, EOMI. Absent: scleral icterus, conjunctival injection, periorbital swelling ENT exam: Present: normal exam, mucous membranes moist Neck exam: Present: normal inspection. Absent: tenderness, meningismus, lymphadenopathy Respiratory exam: Present: normal lung sounds bilaterally. Absent: respiratory distress, wheezes, rales, rhonchi, stridor Cardiovascular Exam: Present: regular rate, normal rhythm, normal heart sounds. Absent: systolic murmur, diastolic murmur, rubs, gallop, clicks GI/Abdominal exam: Present: soft, tenderness, normal bowel sounds. Absent: distended, guarding, rebound, rigid Extremities exam: Present: normal inspection, full ROM, normal capillary refill. Absent: tenderness, pedal edema, joint swelling, calf tenderness Back exam: Present: normal inspection Neurological exam: Present: alert, oriented X3, CN II-XII intact Psychiatric exam: Present: normal affect, normal mood Skin exam: Present: warm, dry, intact, normal color. Absent: rash <Bronson Galeana - Last Filed: 07/23/20 22:18> Course <Bronson Galeana - Last Filed: 07/23/20 22:18> Vital Signs 07/23/20 18:39 Temperature 98.3 F Pulse Rate 61 Respiratory 18 Rate Blood Pressure 155/84 O2 Sat by Pulse 98 Oximetry - Reevaluation(s) Reevaluation #1: 07/23/20 22:17 Medical records reviewed (Bronson Galeana) Reevaluation #2: 07/23/20 22:17 Patient still having persistent epigastric abdominal pain (Bronson Galeana) EKG Findings - EKG Comments: EKG Findings:: EKG: Sinus bradycardia, rate of 55 MS interval 158, QRS duration 80, QTC 405, no ST segment elevation. <Glen Reddy - Last Filed: 07/23/20 19:27> Medical Decision Making - Lab Data Result diagrams: 07/23/20 19:08 07/23/20 19:08 - Radiology Data Radiology results: report reviewed (Ultrasound does show extrahepatic biliary dilation, CT abdomen and pelvis is pending), image reviewed <Bronson Galeana - Last Filed: 07/23/20 22:18> - Medical Decision Making 69 female DEL be admitted for epigastric abdominal pain mild pancreatitis, chest pain (Bronson Galeana) - Lab Data Lab Results 07/23/20 07/23/20 07/23/20 Range/Units 19:08 19:08 19:08 WBC 9.3 (3.8-10.6) k/uL RBC 4.40 (3.80-5.40) m/uL Hgb 13.9 (11.4-16.0) gm/dL Hct 42.2 (34.0-46.0) % MCV 96.0 (80.0-100.0) fL MCH 31.6 (25.0-35.0) pg MCHC 32.9 (31.0-37.0) g/dL RDW 13.0 (11.5-15.5) % Plt Count 202 (150-450) k/uL MPV 7.3 Neutrophils % 40 % Lymphocytes % 50 % Monocytes % 4 % Eosinophils % 4 % Basophils % 1 % Neutrophils # 3.7 (1.3-7.7) k/uL Lymphocytes # 4.7 (1.0-4.8) k/uL Monocytes # 0.4 (0-1.0) k/uL Eosinophils # 0.3 (0-0.7) k/uL Basophils # 0.1 (0-0.2) k/uL PT 10.3 (9.0-12.0) sec INR 1.0 (<1.2) APTT 18.6 L (22.0-30.0) sec Sodium 142 (137-145) mmol/L Potassium 4.0 (3.5-5.1) mmol/L Chloride 106 (98-107) mmol/L Carbon Dioxide 30 (22-30) mmol/L Anion Gap 6 mmol/L BUN 24 H (7-17) mg/dL Creatinine 0.83 (0.52-1.04) mg/dL Est GFR (CKD-EPI)AfAm 83 (>60 ml/min/1.73 sqM) Est GFR (CKD-EPI)NonAf 72 (>60 ml/min/1.73 sqM) Glucose 96 (74-99) mg/dL Calcium 9.4 (8.4-10.2) mg/dL Magnesium 2.2 (1.6-2.3) mg/dL Total Bilirubin 0.2 (0.2-1.3) mg/dL AST 55 H (14-36) U/L ALT 37 H (4-34) U/L Alkaline Phosphatase 77 (38-126) U/L Troponin I (0.000-0.034) ng/mL Total Protein 6.4 (6.3-8.2) g/dL Albumin 4.1 (3.5-5.0) g/dL Amylase 95 (30-110) U/L Lipase 459 H (23-300) U/L 07/23/20 Range/Units 19:08 WBC (3.8-10.6) k/uL RBC (3.80-5.40) m/uL Hgb (11.4-16.0) gm/dL Hct (34.0-46.0) % MCV (80.0-100.0) fL MCH (25.0-35.0) pg MCHC (31.0-37.0) g/dL RDW (11.5-15.5) % Plt Count (150-450) k/uL MPV Neutrophils % % Lymphocytes % % Monocytes % % Eosinophils % % Basophils % % Neutrophils # (1.3-7.7) k/uL Lymphocytes # (1.0-4.8) k/uL Monocytes # (0-1.0) k/uL Eosinophils # (0-0.7) k/uL Basophils # (0-0.2) k/uL PT (9.0-12.0) sec INR (<1.2) APTT (22.0-30.0) sec Sodium (137-145) mmol/L Potassium (3.5-5.1) mmol/L Chloride (98-107) mmol/L Carbon Dioxide (22-30) mmol/L Anion Gap mmol/L BUN (7-17) mg/dL Creatinine (0.52-1.04) mg/dL Est GFR (CKD-EPI)AfAm (>60 ml/min/1.73 sqM) Est GFR (CKD-EPI)NonAf (>60 ml/min/1.73 sqM) Glucose (74-99) mg/dL Calcium (8.4-10.2) mg/dL Magnesium (1.6-2.3) mg/dL Total Bilirubin (0.2-1.3) mg/dL AST (14-36) U/L ALT (4-34) U/L Alkaline Phosphatase (38-126) U/L Troponin I <0.012 (0.000-0.034) ng/mL Total Protein (6.3-8.2) g/dL Albumin (3.5-5.0) g/dL Amylase (30-110) U/L Lipase (23-300) U/L Disposition <Glen Reddy - Last Filed: 07/23/20 19:27> Is patient prescribed a controlled substance at d/c from ED?: No <Bronson Galeana - Last Filed: 07/23/20 22:18> Clinical Impression: Chest pain, Epigastric abdominal pain Disposition: ADMITTED IP TO THIS HOSP Condition: Good Referrals: Josué Zhang MD [Primary Care Provider] - 1-2 days
[2020-07-23 19:40] LABS: Albumin 4.1 g/dL (3.5-5.0); Calcium 9.4 mg/dL (8.4-10.2); Magnesium 2.2 mg/dL (1.6-2.3); Total Bilirubin 0.2 mg/dL (0.2-1.3); Total Protein 6.4 g/dL (6.3-8.2)
[2020-07-23 19:46] LABS: Prothrombin Time 10.3 sec (9.0-12.0)
[2020-07-23 20:02] LABS: Partial Thromboplastin Time 18.6 sec (22.0-30.0)
--- NOTE | 2020-07-23 21:51 | US ---
EXAMINATION TYPE: US abdomen limited DATE OF EXAM: 07/23/2020 COMPARISON: US June 09, 2019 CLINICAL HISTORY: epigastric pain. Pain. Hx cholecystectomy. EXAM MEASUREMENTS: Liver Length: 14.3 cm Gallbladder Wall: Cholecystectomy. CBD: 1.16 cm. Largest measurement taken. Right Kidney: 9.5 x 5.7 x 4.6 cm Limited due to gas. Pancreas: Slightly limited. Duct appears mildly dilated up to 4 mm in visualized portion Hypoechoic-possibly anechoic area seen: 0.6 x 0.5 x 0.7 cm. Liver: Appears to be coarse and heterogeneous in echotexture. Evidence for sonographic Morton's sign: No CBD: Appears slightly dilated. Right Kidney: There appears to be a probable column of Daniel. IMPRESSION: Mild extrahepatic without intrahepatic biliary dilatation greater than suspected after ch olecystectomy. Mild pancreatic ductal dilatation may be present. Advise further investigation with co ntrast-enhanced CT abdomen study
[2020-07-23] MEDS ORDERED: NALOXONE 0.4 MG/ML 1 ML VIAL IV PRN (22:18)
[2020-07-23] MEDS ORDERED: ONDANSETRON 4 MG/2 ML VIAL IVP PRN (22:19)
[2020-07-23] MEDS ORDERED: HYDROmorphone 1 MG/ML 1 ML SYRINGE IVP STA (22:20)
[2020-07-23] MEDS ORDERED: HYDROmorphone 1 MG/ML 1 ML SYRINGE IVP PRN (22:20)
[2020-07-23] MEDS ORDERED: SODIUM CHLORIDE 0.9% 1,000 ML IV SCH (22:30)
--- NOTE | 2020-07-23 23:58 | CT ---
EXAMINATION TYPE: CT abdomen pelvis w con DATE OF EXAM: 07/23/2020 COMPARISON: None HISTORY: Upper Abd Pain CT DLP: 673.7 mGycm Automated exposure control for dose reduction was used. CONTRAST: Performed with IV Contrast, patient injected with 100 mL of Isovue 370. The lung bases are clear. There is no pleural effusion. Heart size is normal. There is no pericardial effusion. Liver spleen stomach pancreas appear intact. The bile ducts are not dilated. Gallbladder a ppears absent. There is no adrenal mass. Kidneys have normal size. There is normal contrast opacification of the kid neys. There is normal excretion on the delayed images. There is no retroperitoneal adenopathy. Bladde r distends smoothly. There is no inguinal hernia. Uterus appears normal. There is no free fluid in th e pelvis. There is no evidence of pelvic mass. Appendix is inferior and posterior and appears normal. There is some spondylotic changes in the lumbar spine. There is no compression fracture. There is mul tilevel lumbar mild facet arthropathy. The bony pelvis is intact. The hip joints are intact. There is no hip dysplasia. There is no mesenteric edema. There is no ascites or free air. There is no sign of bowel obstruction. There are bilateral renal parapelvic cysts. IMPRESSION: No renal stone or obstruction. Normal appendix. No sign of acute abdomen and pelvis.
--- NOTE | 2020-07-24 00:07 | CT ---
EXAMINATION TYPE: CT angio chest DATE OF EXAM: 07/23/2020 COMPARISON: HISTORY: Upper Abd Pain, Lower Chest Pain, R/O PE CT DLP: 272.9 mGycm Automated exposure control for dose reduction was used. CONTRAST: Performed with IV Contrast, patient injected with 100 mL of Isovue 370. Images obtained from the thoracic inlet to the diaphragm with IV contrast. There are 3-D post process ed images. FINDINGS: The lungs are clear of consolidation. There is no evidence of a pulmonary mass. There is no pneumotho rax. There is no mediastinal adenopathy. Thoracic aorta appears normal. There is no aneurysm or disse ction. There are no hilar masses. There is suboptimal contrast in the pulmonary arteries. I see no fi lling defect. There is some spurring in the thoracic spine. There is no compression fracture. Sternum is intact. IMPRESSION: Negative exam. No evidence of pulmonary embolism.
--- NOTE | 2020-07-24 00:27 | ED ---
Medical Decision Making - Medical Decision Making 69 female reevaluation still remains comfortable no pain. Unsure patient's pain cause we'll give follow-up to patient's surgeon, patient does have mild pancreatitis was able to eat and drink without difficulty, recent cardiac catheter without any heart disease with negative troponin. Patient can be discharged home - Lab Data Result diagrams: 07/23/20 19:08 07/23/20 19:08 Lab Results 07/23/20 07/23/20 07/23/20 Range/Units 19:08 19:08 19:08 WBC 9.3 (3.8-10.6) k/uL RBC 4.40 (3.80-5.40) m/uL Hgb 13.9 (11.4-16.0) gm/dL Hct 42.2 (34.0-46.0) % MCV 96.0 (80.0-100.0) fL MCH 31.6 (25.0-35.0) pg MCHC 32.9 (31.0-37.0) g/dL RDW 13.0 (11.5-15.5) % Plt Count 202 (150-450) k/uL MPV 7.3 Neutrophils % 40 % Lymphocytes % 50 % Monocytes % 4 % Eosinophils % 4 % Basophils % 1 % Neutrophils # 3.7 (1.3-7.7) k/uL Lymphocytes # 4.7 (1.0-4.8) k/uL Monocytes # 0.4 (0-1.0) k/uL Eosinophils # 0.3 (0-0.7) k/uL Basophils # 0.1 (0-0.2) k/uL PT 10.3 (9.0-12.0) sec INR 1.0 (<1.2) APTT 18.6 L (22.0-30.0) sec Sodium 142 (137-145) mmol/L Potassium 4.0 (3.5-5.1) mmol/L Chloride 106 (98-107) mmol/L Carbon Dioxide 30 (22-30) mmol/L Anion Gap 6 mmol/L BUN 24 H (7-17) mg/dL Creatinine 0.83 (0.52-1.04) mg/dL Est GFR (CKD-EPI)AfAm 83 (>60 ml/min/1.73 sqM) Est GFR (CKD-EPI)NonAf 72 (>60 ml/min/1.73 sqM) Glucose 96 (74-99) mg/dL Calcium 9.4 (8.4-10.2) mg/dL Magnesium 2.2 (1.6-2.3) mg/dL Total Bilirubin 0.2 (0.2-1.3) mg/dL AST 55 H (14-36) U/L ALT 37 H (4-34) U/L Alkaline Phosphatase 77 (38-126) U/L Troponin I (0.000-0.034) ng/mL Total Protein 6.4 (6.3-8.2) g/dL Albumin 4.1 (3.5-5.0) g/dL Amylase 95 (30-110) U/L Lipase 459 H (23-300) U/L 07/23/20 Range/Units 19:08 WBC (3.8-10.6) k/uL RBC (3.80-5.40) m/uL Hgb (11.4-16.0) gm/dL Hct (34.0-46.0) % MCV (80.0-100.0) fL MCH (25.0-35.0) pg MCHC (31.0-37.0) g/dL RDW (11.5-15.5) % Plt Count (150-450) k/uL MPV Neutrophils % % Lymphocytes % % Monocytes % % Eosinophils % % Basophils % % Neutrophils # (1.3-7.7) k/uL Lymphocytes # (1.0-4.8) k/uL Monocytes # (0-1.0) k/uL Eosinophils # (0-0.7) k/uL Basophils # (0-0.2) k/uL PT (9.0-12.0) sec INR (<1.2) APTT (22.0-30.0) sec Sodium (137-145) mmol/L Potassium (3.5-5.1) mmol/L Chloride (98-107) mmol/L Carbon Dioxide (22-30) mmol/L Anion Gap mmol/L BUN (7-17) mg/dL Creatinine (0.52-1.04) mg/dL Est GFR (CKD-EPI)AfAm (>60 ml/min/1.73 sqM) Est GFR (CKD-EPI)NonAf (>60 ml/min/1.73 sqM) Glucose (74-99) mg/dL Calcium (8.4-10.2) mg/dL Magnesium (1.6-2.3) mg/dL Total Bilirubin (0.2-1.3) mg/dL AST (14-36) U/L ALT (4-34) U/L Alkaline Phosphatase (38-126) U/L Troponin I <0.012 (0.000-0.034) ng/mL Total Protein (6.3-8.2) g/dL Albumin (3.5-5.0) g/dL Amylase (30-110) U/L Lipase (23-300) U/L - Radiology Data Radiology results: report reviewed (CTA chest abdomen pelvis negative for acute disease), image reviewed Disposition Clinical Impression: Chest pain, Epigastric abdominal pain, Pancreatitis Disposition: HOME SELF-CARE Condition: Good Is patient prescribed a controlled substance at d/c from ED?: No
[2020-07-24 00:50] VITALS: BP 154/79; PULSE 62; RESP 17; TEMP 98.1
[2020-07-24] MEDS ORDERED: PANTOPRAZOLE 40 MG/10 ML VIAL IV SCH (09:00)
== END 2020-07-24 00:47 | disposition home or self-care (01) ==
LOC: EC 18:35 → 6NMEDSUR 22:18 → UNDOADMOB 22:18 → EC 07-24 00:47
DX: K85.90 Acute pancreatitis without necrosis or infection, unspecified (principal); R07.89 Other chest pain; M19.90 Unspecified osteoarthritis, unspecified site; F12.90 Cannabis use, unspecified, uncomplicated; Z79.899 Other long term (current) drug therapy; Z79.1 Long term (current) use of non-steroidal anti-inflammatories (NSAID); Z87.891 Personal history of nicotine dependence
CPT/HCPCS: 36415; 93005; 80053; 82150; 83690; 83735; 84484; 85025; 85610; 85730; 87635; 71046; 76705; 71275; 74177; 99285; 96374; C9113; Q9967

== ENCOUNTER 2021-10-29 10:35 | Day surgery (SDC) | payer MEDICARE, OTHER ==
[2021-10-27 11:55] VITALS: BMI 23.9
[~2021-10-29 10:35] MED LIST: LACTATED RINGERS 1,000 ML IV SCH
[2021-10-29 11:05] VITALS: RESP 16; TEMP 98
[2021-10-29] MEDS ORDERED: LIDOCAINE 1% (10MG/ML) FOR IV START INTRADERMA ONE (11:05)
[2021-10-29] MEDS ORDERED: ONDANSETRON 4 MG/2 ML VIAL ONE (11:24)
[2021-10-29] MEDS ORDERED: ATROPINE SULFATE 0.1 MG/ML 10ML SYRINGE ONE (11:57)
[2021-10-29] MEDS ORDERED: PROPOFOL 10 MG/ML 20 ML VIAL IV ONE (11:57)
[2021-10-29] MEDS ORDERED: GLYCOPYRROLATE 0.2 MG/ML 2 ML VIAL ONE (11:57)
--- NOTE | 2021-10-29 12:19 | P.PCN ---
Date of Procedure: 10/29/21 Procedure(s) Performed: BRIEF HISTORY: Patient is a 70-year-old pleasant white female scheduled for an elective colonoscopy as a part of evaluation of positive cologuard. PROCEDURE PERFORMED: Colonoscopy. PREOPERATIVE DIAGNOSIS: Positive cologuard. IV sedation per Anesthesia. PROCEDURE: After informed consent was obtained, the patient, was brought into the endoscopy unit. IV sedation was administered by Anesthesia under continuous monitoring. Digital rectal examination was normal. Initially the Olympus CF-160 flexible video pediatric colonoscope was then inserted in the rectum, gradually advanced into the cecum without any difficulty. Careful examination was performed as the scope was gradually being withdrawn. Ileocecal valve and the appendiceal orifice were visualized and appeared normal. Prep was excellent. Mucosa of the cecum, ascending colon, transverse colon, descending colon, sig moid colon, and rectum appeared normal. Retroflexion was performed in the rectum and weight 2 internal hemorrhoids were seen. The sigmoid diverticulosis. The patient tolerated the procedure well. IMPRESSION: Normal-appearing colon from rectum to cecum with no evidence of colorectal neoplasia. Scattered sigmoid diverticulosis. Weight 2 internal hemorrhoids. RECOMMENDATIONS: Findings of this examination were discussed with the patient as well as her family. She was advised to have a repeat screening colonoscopy in 10 years.
[2021-10-29 12:47] VITALS: BP 132/83; PULSE 75
== END 2021-10-29 12:53 | disposition home or self-care (01) ==
LOC: ORWHC2ENDO 10:35
PROVIDERS: ATTEND Internal Medicine Gastroenterology
DX: K57.30 Diverticulosis of large intestine without perforation or abscess without bleeding (principal); K64.8 Other hemorrhoids; R19.5 Other fecal abnormalities; I10 Essential (primary) hypertension; E78.5 Hyperlipidemia, unspecified; Z88.5 Allergy status to narcotic agent; Z98.890 Other specified postprocedural states; Z98.891 History of uterine scar from previous surgery
CPT/HCPCS: G0121; J2405; J0461; J2704; 45378

== ENCOUNTER → 2021-11-14 | Outpatient (CLI) | payer MEDICARE, OTHER ==
--- NOTE | 2021-11-17 06:35 | BD ---
EXAMINATION TYPE: Axial Bone Density DATE OF EXAM: 11/14/2021 COMPARISON: NONE CLINICAL HISTORY: 71 year old Female. ICD-10 CODE: M81.0 AGE-RELATED OSTEOPOROSIS W/ Height: 62.5 Weight: 137.6 FRAX RISK QUESTIONS: Alcohol (3 or more units per day): no Family History (Parent hip fracture): no Glucocorticoids (More than 3mos): no (Ex: prednisone, prednisolone, methylprednisolone, dexamethasone, and hydrocortisone). History of Fracture in Adulthood: yes Secondary Osteoporosis: 1. Type 1 Diabetes: no 2. Hyperthyroidism: no 3. Menopause before 45: no 4. Malnutrition: no 5. Chronic liver disease: no Rheumatoid Arthritis: no Current Tobacco Use: no RISK FACTORS HISTORY OF: Surgery to Spine/Hip(right/left)/Wrist (right/left): no Family History of Osteoporosis: no Active: yes Diet low in dairy products/other sources of calcium: no Postmenopausal woman: yes Lost more than 2 inches in height since high school: no MEDICATIONS: Additional History: EXAM MEASUREMENTS: Bone mineral densitometry was performed using the [employer] System. Bone mineral density as measured about the Lumbar spine is: ----- L1-L4(G/cm2): 1.181 T Score Values are as follows: ----- L1: 0.9 ----- L2: 0.0 ----- L3: -1.3 ----- L4: 0.1 ----- L1-L4: 0.0 Bone mineral density has: decreased -2.9 % since study of: 09.27.2014 Bone mineral density about the R hip (g/cm2): 0.722 Bone mineral density about the L hip (g/cm2): 0.741 T Score values are as follows: -----R Neck: -2.3 -----L Neck: -2.1 -----R Total: -2.1 -----L Total: -1.6 Bone mineral density has: decreased -9.8 % since study of: 09.27.2014 FRAX%s: The graph provided illustrates a 14.3% chance for a major osteoporotic fx and a 3.6% chance f or the hips probability for fx in 10 years time. IMPRESSION: Osteopenia (T Score between -2.5 and -1). There is slightly increased risk of fracture and the patient may be considered for treatment. Re-Screen 2-5 years. NOTE: T-SCORE=SD OF THE YOUNG ADULT MEAN.
--- NOTE | 2021-11-17 09:33 | MM ---
Reason for Exam: Screening (asymptomatic). Last mammogram was performed 3 year(s) and 5 month(s) ago. Patient History: Menarche at age 12. First Full-Term at age 28. Postmenopausal. Patient has history of breast feeding. Patient used Hormonal Contraceptives for 15 years. Sister had breast cancer, age 59. Risk Values: Pushpa 5 year model risk: 3.5%. NCI Lifetime model risk: 8.8%. Prior Study Comparison: 12/20/2008 Bilateral Diagnostic Mammogram, [facility]. 09/27/2014 Bilateral Screening Mammogram, [facility]. 06/27/2018 Bilateral Screening Mammogram, [facility]. Tissue Density: The breast tissue is heterogeneously dense. This may lower the sensitivity of mammography. Findings: Analyzed By CAD. Dense parenchymal tissue is present bilaterally and appears symmetrical. Moles are marked on the bilateral breasts. There are new coarse and fine calcifications in the lower inner aspect of the left breast. Closer evaluation with magnification views is recommended. Overall Assessment: Incomplete: need additional imaging evaluation, BI-RAD 0 Management: Diagnostic Mammogram of the left breast. A negative mammogram report should not preclude additional follow up of suspicious palpable abnormalities. Patient should continue monthly self breast exam. A clinical breast exam by your physician is recommended on an annual basis and results should be correlated with mammographic findings. Electronically signed and approved by: Melecio Hawley D.O. Radiologis
== END | disposition home or self-care (01) ==
LOC: RADMAMWWP 15:55
PROVIDERS: ATTEND Internal Medicine Geriatric Medicine
DX: Z12.31 Encounter for screening mammogram for malignant neoplasm of breast (principal); Z13.820 Encounter for screening for osteoporosis; M85.89 Other specified disorders of bone density and structure, multiple sites; Z78.0 Asymptomatic menopausal state; Z80.3 Family history of malignant neoplasm of breast
CPT/HCPCS: 77063; 77067; 77080

== ENCOUNTER → 2021-11-24 | Outpatient (CLI) | payer MEDICARE, OTHER ==
--- NOTE | 2021-11-24 14:17 | MM ---
Reason for Exam: Additional evaluation requested from prior study. Last screening mammogram was performed less than 1 month ago. Patient History: Menarche at age 12. First Full-Term at age 28. Postmenopausal. Patient has history of breast feeding. Patient used Hormonal Contraceptives for 15 years. Sister had breast cancer, age 59. Risk Values: Pushpa 5 year model risk: 3.5%. NCI Lifetime model risk: 8.8%. Prior Study Comparison: 09/27/2014 Bilateral Screening Mammogram, [facility]. 06/27/2018 Bilateral Screening Mammogram, [facility]. 11/14/2021 Bilateral MG 3D screening mammo w/cad, [facility]. Tissue Density: Left: The breast tissue is heterogeneously dense. This may lower the sensitivity of mammography. Findings: Analyzed By CAD. Grouped coarse heterogenous calcifications within the lower inner left breast middle to posterior depth. New when compared to prior 2018 exam. Benign vascular calcifications noted. Overall Assessment: Suspicious, BI-RAD 4 Management: Stereotactic Core Biopsy of the left breast. A clinical breast exam by your physician is recommended on an annual basis and results should be correlated with mammographic findings. This exam should not preclude additional follow-up of suspicious palpable abnormalities. Results were given to the patient verbally at the time of exam. Electronically signed and approved by: Tigre Corona D.O.
== END | disposition home or self-care (01) ==
LOC: RADMAMWWP 13:35
PROVIDERS: ATTEND Internal Medicine Geriatric Medicine
DX: R92.8 Other abnormal and inconclusive findings on diagnostic imaging of breast (principal); Z78.0 Asymptomatic menopausal state; Z80.3 Family history of malignant neoplasm of breast
CPT/HCPCS: 77065; G0279; 77061

== ENCOUNTER → 2021-12-26 | Outpatient (CLI) | payer MEDICARE, OTHER ==
--- NOTE | 2021-12-26 08:25 | P.GSHP ---
History of Present Illness H&P Date: 12/26/21 Chief Complaint: abnormal left breast mammogram Leanne is a 71 year old female seen in consultation for Dr. Zhang regarding an abnormal left breast mammogram. Screening mammogram on in which some calcifications were noted in the left breast of concern. A d iagnostic left breast mammogram was then performed on [id number] which confirmed grouped coarse calcifications in the lower inner left breast for which a stereotactic core biopsy was recommended. The patient herself does not feel any lumps masses or nodules of concern in either breast. She has not had any surgery of her breast. She has not had any recent trauma or infection of the breast. Approximately 40 years ago after breast-feeding she did have in the right side and inflamed milk duct which needed to be drained, this was not done with a needle aspiration. Caffeine: 4 cups coffee/day nicotine: stopped 30 years ago, used to smoke 1 PPD for 20 years BCP: used for 10 years, stopped using them about age 29 hormones: none Family history: father: pancreatic cancer paternal aunt: breast cancer paternal grandfather: prostate cancer sister: breast cancer Hormonal history: menarche: 15 , breast fed: yes, age at first : 26 menopause: 57 Surgical History: tubaligation carpel tunnel right wrist Medical History: hepatitis in collage Social History: nicotine: stopped 30 years ago alcohol: occasional; weekly drugs: marijuana gummies for pinched nerve in her shoulder - Constitutional Constitutional: Denies chills, Denies fever - EENT Eyes: denies blurred vision, denies pain Ears: left: decreased hearing, tinnitus Ears, nose, mouth and throat: Denies headache, Denies sore throat - Breasts Breasts: bilateral: as per HPI - Cardiovascular Cardiovascular: Denies chest pain, Denies shortness of breath - Respiratory Respiratory: Denies cough, Denies 7 - Gastrointestinal Gastrointestinal: Denies abdominal pain, Denies diarrhea, Denies nausea, Denies vomiting - Genitourinary (Female) Genitourinary: Denies dysuria, Denies hematuria - Menstruation Menstruation: Reports postmenopausal - Musculoskeletal Comment: arthritis both shoulders pain - Integumentary Integumentary: Reports pruritus, Denies rash - Neurological Neurological: Denies numbness, Denies weakness - Psychiatric Psychiatric: Denies anxiety, Denies depression - Endocrine Endocrine: Reports weight change - Hematologic/Lymphatic Comment: none - Allergic/Immunologic Allergic/Immunologic: Reports as per HPI Past Medical History Past Medical History: Hearing Disorder / Deafness, Hyperlipidemia, Hypertension, Liver Disease, Osteoarthritis (OA) Additional Past Medical History / Comment(s): Hx Hepatitis in College. 25% hearing loss in left ear. History of Any Multi-Drug Resistant Organisms: None Reported Past Surgical History: Section, Orthopedic Surgery, Tubal Ligation Additional Past Surgical History / Comment(s): Bilateral cataracts removed with lens implants, Section X2, colonoscopies, cyst removed from left hand carpal tunnel release right hand, retinal repair. Past Anesthesia/Blood Transfusion Reactions: Postoperative Nausea & Vomiting (PONV) Additional Past Anesthesia/Blood Transfusion Reaction / Comment(s): Severe N/V for approx. 12 hrs after surgery. Balance issues. Past Psychological History: No Psychological Hx Reported Smoking Status: Former smoker Past Alcohol Use History: Occasional Additional Past Alcohol Use History / Comment(s): Smoker of one pack per day for about 20 years, quit 20-30 years ago. Past Drug Use History: Marijuana Additional Drug Use History / Comment(s): Medical Marijuana gummies at . Aware no use 24 hrs prior to procedure. - Past Family History Father Family Medical History: Cancer, Deep Vein Thrombosis (DVT), Vascular Disorder Additional Family Medical History / Comment(s): Pancreatic cancer. Mother Family Medical History: No Reported History Additional Family Medical History / Comment(s): Mother is alive at age 95 with history of diabetes, coronary artery disease status post stent. Currently residing at [facility]. Brother(s) Additional Family Medical History / Comment(s): Patient is 3 brothers with no major medical problems. Patient has 2 sisters with dementia. Patient's 3 children with no major medical problems. Sister(s) Family Medical History: Cancer Additional Family Medical History / Comment(s): Breast cancer. Medications and Allergies Home Medications Medication Instructions Recorded Confirmed Type Atorvastatin [Lipitor] 20 mg PO DAILY 07/23/20 12/26/21 History Losartan Potassium [Cozaar] 50 mg PO QAM 07/23/20 12/26/21 History Allergies Allergy/AdvReac Type Severity Reaction Status Date / Time codeine AdvReac Vomiting Verified 12/26/21 07:28 morphine AdvReac Vomiting Verified 12/26/21 07:28 Surgical - Exam BMI: 23 - General no distress - Eyes normal ocular movement - Neck trachea midline - Respiratory normal respiratory effort - Cardiovascular Rhythm: regular Heart Sounds: normal: S1, S2 - Abdomen Abdomen: soft - Integumentary nevis right arm - Neurologic no disoriented, no combative - Musculoskeletal normal gait, normal posture - Psychiatric oriented to time, oriented to person, oriented to place, speech is normal, memory intact Breast Exam: BRA: large stretch bra Inspection: Grade 2 ptosis bilaterally Palpation: Right breast: Multiple positional exam fibrocystic changes no dominant masses or nodules of concern Right axilla: Shoddy adenopathy non-worrisome Left breast: Multiple positional exam fibrocystic changes no dominant masses or nodules of concern Left axilla: Shoddy adenopathy Results Mammogram personally reviewed and discussed with Dr. Patiño Assessment and Plan Assessment: Impression: Microcalcifications of concern left breast Plan: Left breast stereotactic core biopsy Risk and benefits of procedure discussed with the patient. She understands and wishes to proceed. Risks include but are not limited to bleeding, infection, reaction to the anesthetic. If tissue acquisition was felt to be discordant then further tissue may be necessary to be obtained. Pushpa risk 3,5% we have discussed chemoprevention and at this time the patient has declined. She will wait to see what the results are from stereotactic core biopsy. CC: Dr. Zhang
--- NOTE | 2021-12-26 10:01 | P.PCN ---
Date of Procedure: 12/26/21 Preoperative Diagnosis: abnormal left breast mammogram Postoperative Diagnosis: same Procedure(s) Performed: Left breast stereotactic core biopsy Anesthesia: local Surgeon: Sandra Faye Pathology: other (Breast tissue/radiograph reveals microcalcifications of concern) Condition: stable Disposition: same day Indications for Procedure: Microcalcifications of concern left breast lower quadrant Operative Findings: Radiographic specimen reveals microcalcifications of concern Description of Procedure: The patient is a 71-year-old white female who on a routine screening mammogram was noted to have microcalcifications of concern in the lower left breast. A stereotactic core biopsy was recommended. She was seen and examined and no lesions of concern were palpated. Risks and benefits of the procedure were discussed with the patient as well as alternatives and she wished to proceed. The patient was taken to stereotactic core biopsy room. She was positioned prone on the lo/rad table. A CC from below approach was utilized. The area of concern was identified. The area was targeted. The breast was prepped using Betadine. 20 mL of 1% lidocaine were used to anesthetize the area of concern. A 9-gauge vacuum-assisted core rotating biopsy needle was driven to the correct coordinates. 16 core specimens were obtained. Radiograph of the specimen revealed the area of concern had been sampled. Microcalcifications were in the specimen. Suture marked top clip was placed. This was noted to be in the correct location. The patient tolerated the procedure in stable condition. She will follow-up with Dr. Villeda. The specimen was sent to pathology. CC: Dr. Zhang
== END | disposition home or self-care (01) ==
LOC: WWCWWP 06:52
PROVIDERS: ATTEND Surgery
DX: Z53.9 Procedure and treatment not carried out, unspecified reason (principal)

== ENCOUNTER → 2021-12-26 | Day surgery (SDC) | payer MEDICARE, OTHER ==
--- NOTE | 2021-12-26 14:34 | MM ---
Date of Procedure: 12/26/21 Preoperative Diagnosis: abnormal left breast mammogram Postoperative Diagnosis: same Procedure(s) Performed: Left breast stereotactic core biopsy Anesthesia: local Surgeon: Sandra Faye Pathology: other (Breast tissue/radiograph reveals microcalcifications of concern) Condition: stable Disposition: same day Indications for Procedure: Microcalcifications of concern left breast lower quadrant Operative Findings: Radiographic specimen reveals microcalcifications of concern Description of Procedure: The patient is a 71-year-old white female who on a routine screening mammogram was noted to have microcalcifications of concern in the lower left breast. A stereotactic core biopsy was recommended. She was seen and examined and no lesions of concern were palpated. Risks and benefits of the procedure were discussed with the patient as well as alternatives and she wished to proceed. The patient was taken to stereotactic core biopsy room. She was positioned prone on the lo/rad table. A CC from below approach was utilized. The area of concern was identified. The area was targeted. The breast was prepped using Betadine. 20 mL of 1% lidocaine were used to anesthetize the area of concern. A 9-gauge vacuum-assisted core rotating biopsy needle was driven to the correct coordinates. 16 core specimens were obtained. Radiograph of the specimen revealed the area of concern had been sampled. Microcalcifications were in the specimen. Suture marked top clip was placed. This was noted to be in the correct location. The patient tolerated the procedure in stable condition. She will follow-up with Dr. Villeda. The specimen was sent to pathology [facility]
== END ==
LOC: RADMAMWWP 06:55
PROVIDERS: ATTEND Surgery
DX: D05.12 Intraductal carcinoma in situ of left breast (principal); N64.1 Fat necrosis of breast; R92.0 Mammographic microcalcification found on diagnostic imaging of breast
CPT/HCPCS: 88305; 88342; 88341; 19081; A4648

== ENCOUNTER → 2022-01-15 | Outpatient (CLI) | payer MEDICARE ==
--- NOTE | 2022-01-15 17:13 | P.PN ---
Subjective Progress Note Date: 01/15/22 Principal diagnosis: DCIS left breast Leanne is a 71 year old female seen in consultation for Dr. Zhang regarding an abnormal left breast mammogram. Screening mammogram on in which some calcifications were noted in the left breast of concern. A diagnostic left [facility] mammogram was then performed on [id number] which confirmed grouped coarse calcifications in the lower inner left breast for which a stereotactic core biopsy was recommended. The patient herself does not feel any lumps masses or nodules of concern in either breast. She has not had any surgery of her breast. She has not had any recent trauma or infection of the breast. Approximately 40 years ago after breast-feeding she did have in the right side and inflamed milk duct which needed to be drained, this was not done with a needle aspiration. The patient on [id number] underwent a sterotactic core biopsy of the left breast. 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 It was approximately 1.5 cm in length. It was ER positive UT negative. She developed a hematoma after the procedure. The patient is seen with her daughter. Caffeine: 4 cups coffee/day nicotine: stopped 30 years ago, used to smoke 1 PPD for 20 years BCP: used for 10 years, stopped using them about age 29 hormones: none Family history: father: pancreatic cancer paternal aunt: breast cancer paternal grandfather: prostate cancer sister: breast cancer Hormonal history: menarche: 15 , breast fed: yes, age at first : 26 menopause: 57 Surgical History: tubaligation carpel tunnel right wrist Medical History: hepatitis in coll[place] Social History: nicotine: stopped 30 years ago alcohol: occasional; weekly drugs: marijuana gummies for pinched nerve in her shoulder - Constitutional Constitutional: Denies chills, Denies fever - EENT Eyes: denies blurred vision, denies pain Ears: left: decreased hearing, tinnitus Ears, nose, mouth and throat: Denies headache, Denies sore throat - Breasts Breasts: bilateral: as per HPI - Cardiovascular Cardiovascular: Denies chest pain, Denies shortness of breath - Respiratory Respiratory: Denies cough - Gastrointestinal Gastrointestinal: Denies abdominal pain, Denies diarrhea, Denies nausea, Denies vomiting - Genitourinary (Female) Genitourinary: Denies dysuria, Denies hematuria - Menstruation Menstruation: Reports postmenopausal - Musculoskeletal Comment: arthritis both shoulders pain - Integumentary Integumentary: Reports pruritus, Denies rash - Neurological Neurological: Denies numbness, Denies weakness - Psychiatric Psychiatric: Denies anxiety, Denies depression - Endocrine Endocrine: Reports weight change - Hematologic/Lymphatic Comment: none - Allergic/Immunologic Allergic/Immunologic: Reports as per HPI Past Medical History Past Medical History: Hearing Disorder / Deafness, Hyperlipidemia, Hypertension, Liver Disease, Osteoarthritis (OA) Additional Past Medical History / Comment(s): Hx Hepatitis in College. 25% hearing loss in left ear. History of Any Multi-Drug Resistant Organisms: None Reported Past Surgical History: Section, Orthopedic Surgery, Tubal Ligation Additional Past Surgical History / Comment(s): Bilateral cataracts removed with lens implants, Section X2, colonoscopies, cyst removed from left hand carpal tunnel release right hand, retinal repair. Past Anesthesia/Blood Transfusion Reactions: Postoperative Nausea & Vomiting (PONV) Additional Past Anesthesia/Blood Transfusion Reaction / Comment(s): Severe N/V for approx. 12 hrs after surgery. Balance issues. Past Psychological History: No Psychological Hx Reported Smoking Status: Former smoker Past Alcohol Use History: Occasional Additional Past Alcohol Use History / Comment(s): Smoker of one pack per day for about 20 years, quit 20-30 years ago. Past Drug Use History: Marijuana Additional Drug Use History / Comment(s): Medical Marijuana gummies at . Aware no use 24 hrs prior to procedure. - Past Family History Father Family Medical History: Cancer, Deep Vein Thrombosis (DVT), Vascular Disorder Additional Family Medical History / Comment(s): Pancreatic cancer. Mother Family Medical History: No Reported History Additional Family Medical History / Comment(s): Mother is alive at age 95 with history of diabetes, coronary artery disease status post stent. Currently residing at [facility]. Brother(s) Additional Family Medical History / Comment(s): Patient is 3 brothers with no major medical problems. Patient has 2 sisters with dementia. Patient's 3 children with no major medical problems. Sister(s) Family Medical History: Cancer Additional Family Medical History / Comment(s): Breast cancer. Medications and Allergies Home Medications Medication Instructions Recorded Confirmed Type Atorvastatin [Lipitor] 20 mg PO DAILY 07/23/20 12/26/21 History Losartan Potassium [Cozaar] 50 mg PO QAM 07/23/20 12/26/21 History Allergies Allergy/AdvReac Type Severity Reaction Status Date / Time codeine AdvReac Vomiting Verified 12/26/21 07:28 morphine AdvReac Vomiting Verified 12/26/21 07:28 Objective - Constitutional General appearance: Present: cooperative - EENT Eyes: Present: EOMI ENT: Present: hearing grossly normal - Neck Neck: Present: normal ROM - Respiratory Respiratory: bilateral: CTA - Cardiovascular Heart sounds: normal: S1, S2 - Integumentary Integumentary Comment(s): Biopsy site left breast hematoma with some ecchymosis - Musculoskeletal Musculoskeletal: Present: gait normal - Psychiatric Psychiatric: Present: A&O x's 3, appropriate affect, intact judgment & insight Assessment and Plan Assessment: Impression: Ductal carcinoma in situ left breast stents are tachycardic or biopsy, approximately 1.5 cm in size Plan: I've had a long discussion with the patient and her daughter regarding surgical, radiation oncology, and medical oncology treatment options. I have spent approximately an hour with them. We have talked about the risks and benefits of mastectomy versus lumpectomy plus or minus radiation. We have also discussed sentinel node biopsy possibility secondary to the size of the tumor being 1.5 cm and the lesion being a medium to high grade. We discussed the fact that she is 71 there are studies which would indicate that doing a sentinel node biopsy over the age of 70 is not necessary. We will plan to discuss her case at tumor board. The patients sister had breast cancer treatment out of the area and will probably seek a second opinion. The patient wishes to have genetic testing done and this is being ordered. CC: Dr. Zhang
== END ==
LOC: WWCWWP 15:41
PROVIDERS: ATTEND Surgery
DX: D05.12 Intraductal carcinoma in situ of left breast (principal); E78.5 Hyperlipidemia, unspecified; I10 Essential (primary) hypertension; M19.90 Unspecified osteoarthritis, unspecified site; Z88.5 Allergy status to narcotic agent; Z87.891 Personal history of nicotine dependence

== ENCOUNTER → 2022-02-26 | Outpatient (CLI) | payer MEDICARE, OTHER ==
[2022-02-26 12:46] VITALS: BP 144/78; PULSE 65; RESP 17; TEMP 97.8
--- NOTE | 2022-02-26 12:59 | P.PN ---
Subjective Progress Note Date: 02/26/22 Principal diagnosis: left breast DCIS DCIS left breast Leanne is a 71 year old female seen in consultation for Dr. Zhang regarding an abnormal left breast mammogram. Screening mammogram on in which some calcifications were noted in the left breast of concern. A diagnostic left breast mammogram was then performed on [id number] which confirmed grouped coarse calcifications in the lower inner left breast for which a stereotactic core biopsy was recommended. The patient herself did not feel any lumps masses or nodules of concern in either breast. She had not had any surgery of her breast. She had not had any recent trauma or infection of the breast. Approximately 40 years ago after breast-feeding she did have in the right side and inflamed milk duct which needed to be drained, this was not done with a needle aspiration. The patient on [id number] underwent a sterotactic core biopsy of the left breast. 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 It was approximately 1.5 cm in length. It was ER positive VA negative. She developed a hematoma after the procedure. Her case was presented at tumor board on 01/1322. Lumpectomy with sentinel node biopsy was recommended. We'll most likely be recommended for radiation therapy following lumpectomy and hormone therapy. 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 Female breast cancer mutation risk 20-40% by age 79 Second primary within 10 years of first breast cancer diagnosis up to 29% Estimated 5-10% lifetime risk of colon cancer Note from radiation oncology 1323 Dr. Galdamez reviewed The patient is seen with her daughter. Caffeine: 4 cups coffee/day nicotine: stopped 30 years ago, used to smoke 1 PPD for 20 years BCP: used for 10 years, stopped using them about age 29 hormones: none Family history: father: pancreatic cancer paternal aunt: breast cancer paternal grandfather: prostate cancer sister: breast cancer Hormonal history: menarche: 15 , breast fed: yes, age at first : 26 menopause: 57 Surgical History: tubaligation carpel tunnel right wrist Medical History: hepatitis in collage Social History: nicotine: stopped 30 years ago alcohol: occasional; weekly drugs: marijuana gummies for pinched nerve in her shoulder - Constitutional Constitutional: Denies chills, Denies fever - EENT Eyes: denies blurred vision, denies pain Ears: left: decreased hearing, tinnitus Ears, nose, mouth and throat: Denies headache, Denies sore throat - Breasts Breasts: bilateral: as per HPI - Cardiovascular Cardiovascular: Denies chest pain, Denies shortness of breath - Respiratory Respiratory: Denies cough - Gastrointestinal Gastrointestinal: Denies abdominal pain, Denies diarrhea, Denies nausea, Denies vomiting - Genitourinary (Female) Genitourinary: Denies dysuria, Denies hematuria - Menstruation Menstruation: Reports postmenopausal - Musculoskeletal Comment: arthritis both shoulders pain - Integumentary Integumentary: Reports pruritus, Denies rash - Neurological Neurological: Denies numbness, Denies weakness - Psychiatric Psychiatric: Denies anxiety, Denies depression - Endocrine Endocrine: Reports weight change - Hematologic/Lymphatic Comment: none - Allergic/Immunologic Allergic/Immunologic: Reports as per HPI Past Medical History Past Medical History: Hearing Disorder / Deafness, Hyperlipidemia, Hypertension, Liver Disease, Osteoarthritis (OA) Additional Past Medical History / Comment(s): Hx Hepatitis in College. 25% hearing loss in left ear. History of Any Multi-Drug Resistant Organisms: None Reported Past Surgical History: Section, Orthopedic Surgery, Tubal Ligation Additional Past Surgical History / Comment(s): Bilateral cataracts removed with lens implants, Section X2, colonoscopies, cyst removed from left hand carpal tunnel release right hand, retinal repair. Past Anesthesia/Blood Transfusion Reactions: Postoperative Nausea & Vomiting (PONV) Additional Past Anesthesia/Blood Transfusion Reaction / Comment(s): Severe N/V for approx. 12 hrs after surgery. Balance issues. Past Psychological History: No Psychological Hx Reported Smoking Status: Former smoker Past Alcohol Use History: Occasional Additional Past Alcohol Use History / Comment(s): Smoker of one pack per day for about 20 years, quit 20-30 years ago. Past Drug Use History: Marijuana Additional Drug Use History / Comment(s): Medical Marijuana gummies at . Aware no use 24 hrs prior to procedure. - Past Family History Father Family Medical History: Cancer, Deep Vein Thrombosis (DVT), Vascular Disorder Additional Family Medical History / Comment(s): Pancreatic cancer. Mother Family Medical History: No Reported History Additional Family Medical History / Comment(s): Mother is alive at age 95 with history of diabetes, coronary artery disease status post stent. Currently residing at [facility]. Brother(s) Additional Family Medical History / Comment(s): Patient is 3 brothers with no major medical problems. Patient has 2 sisters with dementia. Patient's 3 children with no major medical problems. Sister(s) Family Medical History: Cancer Additional Family Medical History / Comment(s): Breast cancer. Medications and Allergies Home Medications Medication Instructions Recorded Confirmed Type Atorvastatin [Lipitor] 20 mg PO DAILY 07/23/20 12/26/21 History Losartan Potassium [Cozaar] 50 mg PO QAM 07/23/20 12/26/21 History Allergies Allergy/AdvReac Type Severity Reaction Status Date / Time codeine AdvReac Vomiting Verified 12/26/21 07:28 morphine AdvReac Vomiting Verified 12/26/21 07:28 Objective - Constitutional General appearance: Present: cooperative - EENT Eyes: Present: EOMI ENT: Present: hearing grossly normal - Neck Neck: Present: normal ROM - Respiratory Respiratory: bilateral: CTA - Cardiovascular Rhythm: regular Heart sounds: normal: S1, S2 - Gastrointestinal General gastrointestinal: Present: soft - Integumentary Integumentary Comment(s): Right forearm reveals approximately a 1 x 8 mm dark nevus which will be excised Integumentary: Present: normal turgor - Musculoskeletal Musculoskeletal: Present: gait normal - Psychiatric Psychiatric: Present: A&O x's 3, appropriate affect, intact judgment & insight - Additional findings Additional findings: Breast Exam: BRA: 38B Inspection: bilateral grade 2/3 ptosis Palpation: Right breast: Multi-positional exam fibrocystic changes no discrete dominant masses or nodules of concern Right axilla: No adenopathy of concern Left breast: Multi-positional exam resolving hematoma at site of prior biopsy no discrete dominant masses or nodules of concern otherwise in the breast Left axilla: No adenopathy of concern Assessment and Plan Assessment: Impression: Left breast ductal carcinoma in situ approximately 1.5 cm in size; grade 2/3 Genetic testing done CHEK 2; patient is aware that she is at increased risk to develop another breast cancer. She has been given the option of bilateral mastectomies and declined I cholesterol Plan: I've had a long discussion with the patient and her daughter regarding surgical, radiation oncology, and medical oncology treatment options. I have spent approximately an hour with them. We have talked about the risks and benefits of mastectomy versus lumpectomy plus or minus radiation. We have also discussed sentinel node biopsy possibility secondary to the size of the tumor being 1.5 cm and the lesion being a medium to high grade. We discussed the fact that she is 71 there are studies which would indicate that doing a sentinel node biopsy over the age of 70 is not necessary. The patients sister had breast cancer treatment out of the area and will probably seek a second opinion. Left breast needle localization lumpectomy, onco- plastic tissue transfer, left sentinel node injection, left sentinel node biopsy, possible left axillary node dissection CC: Dr. Zhang
== END ==
LOC: WWCWWP 12:38
PROVIDERS: ATTEND Surgery
DX: D05.12 Intraductal carcinoma in situ of left breast (principal); E78.5 Hyperlipidemia, unspecified; I10 Essential (primary) hypertension; M19.90 Unspecified osteoarthritis, unspecified site; Z88.5 Allergy status to narcotic agent; Z87.891 Personal history of nicotine dependence

== ENCOUNTER → 2022-04-23 | Outpatient (CLI) | payer MEDICARE, OTHER ==
[2022-04-23 14:27] VITALS: BP 133/82; PULSE 68; RESP 16; TEMP 97.8
--- NOTE | 2022-04-23 14:36 | P.PN ---
Progress Note - Text Progress Note Date: 04/23/22 The patient on [id number] underwent a sterotactic core biopsy of the left breast. 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 It was approximately 1.5 cm in length. It was ER positive MT negative. She developed a hematoma after the procedure. Her case was presented at tumor board on 01/1322. Lumpectomy with sentinel node biopsy was recommended. Lumpectomy and SNB were done on 03-10-22. Pathology revealed G1 invasive cancer and close medial and lateral and posterior margins to DCIS. Reexcision of medial and lateral margins recommended after discussion with pathology, as the posterior margin was on the pectoralis muscle.. Node (-). ER+, Pr+, Her2-. She underwent reexcision of her medial and lateral margins on 3722. Her new margins did not show any residual cancer. She did have on the medial margin a focal intermediate grade DCIS in the specimen but the new external surface of the medial margin was negative. At the lateral margin there was focal atypical ductal hyperplasia bordering on low-grade DCIS but the margins were negative. Physical examination: Lungs: Clear Heart: Regular rate and rhythm Incision: Clean and dry breast and axilla Impression: Patient doing well at this time Plan: Follow up. 4 months Follow-up radiation oncology Follow-up medical oncology C: Dr. Zhang
== END ==
LOC: WWCWWP 14:20
PROVIDERS: ATTEND Surgery
DX: Z85.3 Personal history of malignant neoplasm of breast (principal); Z88.5 Allergy status to narcotic agent; Z87.891 Personal history of nicotine dependence

== ENCOUNTER → 2022-10-23 | Day surgery (SDC) | payer MEDICARE, OTHER ==
[~2022-10-23] MED LIST changes: +ACETAMINOPHEN TAB 500 MG TAB PO PRN; +DEXAMETHASONE SOD PHOSPHATE 4 MG/ML 1 ML VIAL IVP ONE; +HEPARIN SODIUM,PORCINE/PF 5,000 UNIT/0.5 ML SYRINGE SQ PRN; +LACTATED RINGERS 1,000 ML IV ONE; -LACTATED RINGERS 1,000 ML IV SCH; +LIDOCAINE 1%-EPI 1:100,000 50 ML VIAL SQ ONE; +MIDAZOLAM 2 MG/2 ML VIAL ONE; +ONDANSETRON 4 MG/2 ML VIAL ONE; +PROPOFOL 10 MG/ML 20 ML VIAL IV ONE; +Pre Op ABX Message 1 EACH MISC MISCELLANE ONE; +SODIUM CHLORIDE 0.9% 50 ML with ceFAZolin 2,000 MG IV ONE; +fentaNYL (PF) 50 MCG/ML 2 ML AMP ONE
[2022-10-23 06:24] VITALS: RESP 16; TEMP 97.8
--- NOTE | 2022-10-23 07:45 | P.OP ---
Date of Procedure: 10/23/22 Preoperative Diagnosis: Left flank lipoma Postoperative Diagnosis: Left flank sebaceous cyst Procedure(s) Performed: Excision of left flank sebaceous cyst Anesthesia: MAC Surgeon: Chip Howell Estimated Blood Loss (ml): 5 Pathology: other (Sebaceous cyst) Condition: stable Disposition: PACU Description of Procedure: The patient's placed on the operative table in the lateral position. Her left side was facing up. Her left leg was prepped and draped usual sterile fashion. Patient had a 5 cm mass. The skin was anesthetized. The skin was then incised with 15 blade. Using cautery the sebaceous cyst was dissected free from subcutaneous tissue. The skin was then closed interrupted 3-0 Monocryl suture. Dermabond was applied. Patient top she will she was sent to recovery room in stable condition.
[2022-10-23 08:38] VITALS: BP 110/56; PULSE 67
== END ==
LOC: OR 05:46
PROVIDERS: ATTEND Surgery
DX: D23.5 Other benign neoplasm of skin of trunk (principal); L72.3 Sebaceous cyst; Z85.3 Personal history of malignant neoplasm of breast; I10 Essential (primary) hypertension; E78.5 Hyperlipidemia, unspecified; K21.9 Gastro-esophageal reflux disease without esophagitis; B19.10 Unspecified viral hepatitis B without hepatic coma; M19.90 Unspecified osteoarthritis, unspecified site; Z79.899 Other long term (current) drug therapy
CPT/HCPCS: 21931; 88305; 88342; 88341; J2250; J1100; J2405; J0690; J3010; J2704; J1644

== ENCOUNTER → 2022-11-17 | Outpatient (CLI) | payer MEDICARE, OTHER ==
--- NOTE | 2022-11-17 10:11 | MM ---
Reason for Exam: Follow-up at short interval from prior study. Last screening mammogram was performed 12 month(s) ago. Patient History: Menarche at age 12. First Full-Term at age 28. Postmenopausal. Patient has history of breast feeding. Breast cancer, left, age 71. Breast cancer, left, age 71. Previous chest radiation therapy at age 71. Patient used Hormonal Contraceptives for 15 years. 03/10/2022, Lumpectomy on the Left side. 03/10/2022, Malignant MG pre op needle loc LT on the left side. 12/26/2021, Malignant MG stereo VAD BX LT on the left side. Sister had breast cancer, age 59. Daughter had breast cancer, age 42. Prior Study Comparison: 05/09/2001 Bilateral Screening Mammogram, [facility]. 12/20/2008 Bilateral Diagnostic Mammogram, [facility]. 12/20/2008 Right Diagnostic Ultrasound, [facility]. 09/27/2014 Bilateral Screening Mammogram, [facility]. 06/27/2018 Bilateral Screening Mammogram, [facility]. 11/14/2021 Bilateral MG 3D screening mammo w/cad, [facility]. 11/24/2021 Left MG 3D work up w/cad LT, [facility]. Tissue Density: The breast tissue is heterogeneously dense. This may lower the sensitivity of mammography. Findings: Analyzed By CAD. New suspicious mass or worrisome group of calcifications within either breast. Postsurgical changes of the lower inner left breast from lumpectomy. Overall Assessment: Benign, BI-RAD 2 Management: Diagnostic Mammogram of both breasts in 1 year. A clinical breast exam by your physician is recommended on an annual basis and results should be correlated with mammographic findings. This exam should not preclude additional follow-up of suspicious palpable abnormalities. Results were given to the patient verbally at the time of exam. Electronically signed and approved by: Tigre Corona D.O.
== END | disposition home or self-care (01) ==
LOC: RADMAMWWP 09:34
PROVIDERS: ATTEND Surgery
DX: R92.333 Mammographic heterogeneous density, bilateral breasts (principal); Z85.3 Personal history of malignant neoplasm of breast; Z78.0 Asymptomatic menopausal state; Z80.3 Family history of malignant neoplasm of breast
CPT/HCPCS: 77066; G0279; 77062

== ENCOUNTER → 2022-11-20 | Outpatient (CLI) | payer MEDICARE, OTHER ==
--- NOTE | 2022-11-20 10:36 | P.PN ---
Subjective Progress Note Date: 11/20/22 Principal diagnosis: DCIS left breast DCIS left breast 2021 Leanne is a 71 year old female seen in consultation for Dr. Zhang regarding an abnormal left breast mammogram. Screening mammogram on in which some calcifications were noted in the left breast of concern. A diagnostic left breast mammogram was then performed on [id number] which confirmed grouped coarse calcifications in the lower inner left breast for which a stereotactic core biopsy was recommended. The patient herself did not feel any lumps masses or nodules of concern in either breast. She had not had any surgery of her breast. She had not had any recent trauma or infection of the breast. Approximately 40 years ago after breast-feeding she did have in the right side and inflamed milk duct which needed to be drained, this was not done with a needle aspiration. The patient on [id number] underwent a sterotactic core biopsy of the left breast. 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 It was approximately 1.5 cm in length. It was ER positive MT negative. She developed a hematoma after the procedure. Her case was presented at tumor board on 01/1322. Lumpectomy with sentinel node biopsy was recommended. We'll most likely be recommended for radiation therapy following lumpectomy and hormone therapy. 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 Female breast cancer mutation risk 20-40% by age 79 Second primary within 10 years of first breast cancer diagnosis up to 29% Estimated 5-10% lifetime risk of colon cancer lumpectomy and SNB done on 03-10-22; pathology revealed close medial, lateral, and posterior margins posterior onto the pect muscle re-excision 04-14-22 new margins (-) Note from radiation oncology 08-27-22 Dr. Galdamez reviewed; patient had some mobility issues with her left arm, referred to Physical therapy; completed radiation July 02 The patient started annestrazole and doing well with it Bilateral mammogram [id number] benign BIRADS 2; secondary to CHEK2 mutation recommend yearly MRI of the breast Caffeine: 4 cups coffee/day nicotine: stopped 30 years ago, used to smoke 1 PPD for 20 years BCP: used for 10 years, stopped using them about age 29 hormones: none Family history: father: pancreatic cancer paternal aunt: breast cancer paternal grandfather: prostate cancer sister: breast cancer daughter: bilateral breast cancer Hormonal history: menarche: 15 , breast fed: yes, age at first : 26 menopause: 57 Surgical History: tubaligation carpel tunnel right wrist colonoscopy done about 1 year ago; following with Dr. Zhang Medical History: hepatitis in collage Social History: nicotine: stopped 30 years ago alcohol: occasional; weekly drugs: marijuana gummies for pinched nerve in her shoulder - Constitutional Constitutional: Denies chills, Denies fever - EENT Eyes: denies blurred vision, denies pain Ears: left: decreased hearing, tinnitus Ears, nose, mouth and throat: Denies headache, Denies sore throat - Breasts Breasts: bilateral: as per HPI - Cardiovascular Cardiovascular: Denies chest pain, Denies shortness of breath - Respiratory Respiratory: Denies cough - Gastrointestinal Gastrointestinal: Denies abdominal pain, Denies diarrhea, Denies nausea, Denies vomiting - Genitourinary (Female) Genitourinary: Denies dysuria, Denies hematuria - Menstruation Menstruation: Reports postmenopausal - Musculoskeletal Comment: arthritis both shoulders pain - Integumentary Integumentary: Reports pruritus, Denies rash - Neurological Neurological: Denies numbness, Denies weakness - Psychiatric Psychiatric: Denies anxiety, Denies depression - Endocrine Endocrine: Reports weight change - Hematologic/Lymphatic Comment: none - Allergic/Immunologic Allergic/Immunologic: Reports as per HPI Past Medical History Past Medical History: Hearing Disorder / Deafness, Hyperlipidemia, Hypertension, Liver Disease, Osteoarthritis (OA) Additional Past Medical History / Comment(s): Hx Hepatitis in College. 25% hearing loss in left ear. History of Any Multi-Drug Resistant Organisms: None Reported Past Surgical History: Section, Orthopedic Surgery, Tubal Ligation Additional Past Surgical History / Comment(s): Bilateral cataracts removed with lens implants, Section X2, colonoscopies, cyst removed from left hand carpal tunnel release right hand, retinal repair. Past Anesthesia/Blood Transfusion Reactions: Postoperative Nausea & Vomiting (PONV) Additional Past Anesthesia/Blood Transfusion Reaction / Comment(s): Severe N/V for approx. 12 hrs after surgery. Balance issues. Past Psychological History: No Psychological Hx Reported Smoking Status: Former smoker Past Alcohol Use History: Occasional Additional Past Alcohol Use History / Comment(s): Smoker of one pack per day for about 20 years, quit 20-30 years ago. Past Drug Use History: Marijuana Additional Drug Use History / Comment(s): Medical Marijuana gummies at hs. Aware no use 24 hrs prior to procedure. - Past Family History Father Family Medical History: Cancer, Deep Vein Thrombosis (DVT), Vascular Disorder Additional Family Medical History / Comment(s): Pancreatic cancer. Mother Family Medical History: No Reported History Additional Family Medical History / Comment(s): Mother is alive at age 95 with history of diabetes, coronary artery disease status post stent. Currently residing at [facility]. Brother(s) Additional Family Medical History / Comment(s): Patient is 3 brothers with no major medical problems. Patient has 2 sisters with dementia. Patient's 3 children with no major medical problems. Sister(s) Family Medical History: Cancer Additional Family Medical History / Comment(s): Breast cancer. Medications and Allergies Home Medications Medication Instructions Recorded Confirmed Type Atorvastatin [Lipitor] 20 mg PO DAILY 07/23/20 12/26/21 History Losartan Potassium [Cozaar] 50 mg PO QAM 07/23/20 12/26/21 History Allergies Allergy/AdvReac Type Severity Reaction Status Date / Time codeine AdvReac Vomiting Verified 12/26/21 07:28 morphine AdvReac Vomiting Verified 12/26/21 07:28 Objective - Constitutional General appearance: Present: cooperative - EENT Eyes: Present: EOMI ENT: Present: hearing grossly normal - Neck Neck: Present: normal ROM - Respiratory Respiratory: bilateral: CTA - Cardiovascular Rhythm: regular Heart sounds: normal: S1, S2 - Integumentary Integumentary: Present: normal turgor - Musculoskeletal Musculoskeletal: Present: gait normal - Psychiatric Psychiatric: Present: A&O x's 3, appropriate affect, intact judgment & insight - Additional findings Additional findings: Breast Exam: BRA: 38B Inspection: bilateral grade 2/3 ptosis Palpation: Right breast: Multi-positional exam fibrocystic changes no discrete dominant masses or nodules of concern Right axilla: No adenopathy of concern Left breast: Multi-positional exam post surgical and radiation changes no evidence of any dominant masses or nodules of concern; emanation of the lateral chest wall does not reveal any dominant masses or nodules of concern Left axilla: No adenopathy of concern Assessment and Plan Assessment: Impression: Patient status post left breast lumpectomy and sentinel node biopsy for DCIS Patient has completed a course of radiation therapy Patient presently on anastrozole bilateral mamogram 11-17-22 BIRAD 2 Plan: Follow-up examination in 4 months bilateral mammogram November 2023 MRI in 6 months of the breast secondary to CHEK2 mutation colonoscopy as per Dr. Zhang CC: Dr. Zhang
[2022-11-20 10:42] VITALS: BP 136/68; PULSE 68; RESP 18; TEMP 98
== END ==
LOC: WWCWWP 10:15
PROVIDERS: ATTEND Surgery
DX: D05.12 Intraductal carcinoma in situ of left breast (principal); E78.5 Hyperlipidemia, unspecified; I10 Essential (primary) hypertension; M19.90 Unspecified osteoarthritis, unspecified site; Z79.811 Long term (current) use of aromatase inhibitors; Z80.3 Family history of malignant neoplasm of breast; Z87.891 Personal history of nicotine dependence; Z92.3 Personal history of irradiation; Z88.5 Allergy status to narcotic agent; Z79.899 Other long term (current) drug therapy

== ENCOUNTER → 2022-12-24 | Outpatient (CLI) | payer MEDICARE, OTHER ==
--- NOTE | 2022-12-25 08:44 | US ---
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 0.7 X 0.6 x 0.6 cm, lower medial, mixed cystic and solid, anechoic nodule, which is as wide as it is tall, with well-defined margins, without echogenic foci. 2. 1.2 X 1.0 x 0.7 cm, lower medial, solid or almost completely solid, isoechoic nodule, which is w ider than tall, with ill-defined margins, without echogenic foci. TR 3 ISTHMUS: # of nodules measured in the isthmus: 0 Bilateral neck scanned, no evidence of lymphadenopathy. IMPRESSION: Mildly suspicious nodule left lobe thyroid. Consider follow-up exam. 2017 ACR TI-RADS LEVEL: TR-RADS 3 - Mildly Suspicious: Follow if > 1.5 cm, FNA if > 2.5 cm *Highest TI-RADS level nodule reported
--- NOTE | 2022-12-25 08:55 | US ---
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 TECHNIQUE: Multiple sonographic images of the abdomen are obtained. FINDINGS: EXAM MEASUREMENTS: Liver Length: 13.5 cm Gallbladder Wall: Surgically absent. CBD: 0.9 cm Spleen: Not visualized. Right Kidney: 9.6 x 5.3 x 4.5 cm Left Kidney: 10.0 x 5.1 x 4.6 cm [employer] NOTES: Exam is limited due to gas. Pancreas: Hypoechoic area seen either within or adjacent to pancreas: 1.5 x 1.4 x 0.5 cm. Liver: Appears very coarse/heterogeneous in echotexture. Gallbladder: Surgically absent. Evidence for sonographic Morton's sign: No CBD: Appears wnl Spleen: Not visualized. Right Kidney: Prominent renal pelvis. *Anechoic area seen superior pole: 1.0 x 0.8 x 0.6 cm., Compatible simple cyst Adjacent hyperechoic focus seen superior pole: 0.2 x 0.4 x 0.3 cm. Left Kidney: Multiple anechoic areas seen, largest seen measures 1.1 x 1.7 x 1.3 cm. This may be a p eripelvic cyst. *Hyperechoic focus seen: 0.2 x 0.3 x 0.3 cm. Upper IVC: Appears wnl Abd Aorta: Appears wnl IMPRESSION: 1. There may be a hypoechoic ill-defined pancreatic head hypodensity. Contrast CT with a pancreas pro tocol with contrast is recommended. Neoplasm is not excluded. 2. Renal cysts bilaterally.
== END | disposition home or self-care (01) ==
LOC: RADUSWWP 09:28
DX: C50.912 Malignant neoplasm of unspecified site of left female breast (principal); D17.1 Benign lipomatous neoplasm of skin and subcutaneous tissue of trunk; E04.2 Nontoxic multinodular goiter; Z15.89 Genetic susceptibility to other disease; Z15.09 Genetic susceptibility to other malignant neoplasm; Z15.02 Genetic susceptibility to malignant neoplasm of ovary; Z80.3 Family history of malignant neoplasm of breast; Z71.0 Person encountering health services to consult on behalf of another person
CPT/HCPCS: 76536; 76700

== ENCOUNTER → 2023-04-02 | Outpatient (CLI) | payer MEDICARE, OTHER ==
[2023-04-02 11:02] VITALS: BP 163/74; PULSE 59; RESP 15; TEMP 98.3
--- NOTE | 2023-04-02 11:18 | P.PN ---
Subjective Progress Note Date: 04/02/23 Principal diagnosis: DCIS left breast DCIS left breast 2021 Leanne is a 71 year old female seen in consultation for Dr. Zhang regarding an abnormal left breast mammogram. Screening mammogram on in which some calcifications were noted in the left breast of concern. A diagnostic left breast mammogram was then performed on [id number] which confirmed grouped coarse calcifications in the lower inner left breast for which a stereotactic core biopsy was recommended. The patient herself did not feel any lumps masses or nodules of concern in either breast. She had not had any surgery of her breast. She had not had any recent trauma or infection of the breast. Approximately 40 years ago after breast-feeding she did have in the right side and inflamed milk duct which needed to be drained, this was not done with a needle aspiration. The patient on [id number] underwent a sterotactic core biopsy of the left breast. 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 It was approximately 1.5 cm in length. It was ER positive ID negative. She developed a hematoma after the procedure. Her case was presented at tumor board on 01/1322. Lumpectomy with sentinel node biopsy was recommended. We'll most likely be recommended for radiation therapy following lumpectomy and hormone therapy. 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 Female breast cancer mutation risk 20-40% by age 79 Second primary within 10 years of first breast cancer diagnosis up to 29% Estimated 5-10% lifetime risk of colon cancer lumpectomy and SNB done on 03-10-22; pathology revealed close medial, lateral, and posterior margins posterior onto the pect muscle re-excision 04-14-22 new margins (-) Note from radiation oncology 08-27-22 Dr. Galdamez reviewed; patient had some mobility issues with her left arm, referred to Physical therapy; completed radiation July 02, 2022 The patient started annestrazole and doing well with it Bilateral mammogram [id number] benign BIRADS 2; secondary to CHEK2 mutation recommend yearly MRI of the breast note 02-25-23 radiation oncology reviewed She is not complaining of any new lumps masses or nodules of concern. She does have a rash over her upper chest and upper extremities. She is going to follow with her primary care doctor with respect to this. Her is presently in rehab secondary to back pain and she is feeling depression secondary to this. Caffeine: 4 cups coffee/day nicotine: stopped 30 years ago, used to smoke 1 PPD for 20 years BCP: used for 10 years, stopped using them about age 29 hormones: none Family history: father: pancreatic cancer paternal aunt: breast cancer paternal grandfather: prostate cancer sister: breast cancer daughter: bilateral breast cancer Hormonal history: menarche: 15 , breast fed: yes, age at first : 26 menopause: 57 Surgical History: tubaligation carpel tunnel right wrist colonoscopy done about 1 year ago; following with Dr. Zhang Medical History: hepatitis in collage depression Social History: nicotine: stopped 30 years ago alcohol: occasional; weekly drugs: marijuana gummies for pinched nerve in her shoulder - Constitutional Constitutional: Denies chills, Denies fever - EENT Eyes: denies blurred vision, denies pain Ears: left: decreased hearing, tinnitus Ears, nose, mouth and throat: Denies headache, Denies sore throat - Breasts Breasts: bilateral: as per HPI - Cardiovascular Cardiovascular: Denies chest pain, Denies shortness of breath - Respiratory Respiratory: Denies cough - Gastrointestinal Gastrointestinal: Denies abdominal pain, Denies diarrhea, Denies nausea, Denies vomiting - Genitourinary (Female) Genitourinary: Denies dysuria, Denies hematuria - Menstruation Menstruation: Reports postmenopausal - Musculoskeletal Comment: arthritis both shoulders pain - Integumentary Integumentary: Reports pruritus, Denies rash - Neurological Neurological: Denies numbness, Denies weakness - Psychiatric Psychiatric: Denies anxiety, Denies depression - Endocrine Endocrine: Reports weight change - Hematologic/Lymphatic Comment: none - Allergic/Immunologic Allergic/Immunologic: Reports as per HPI Past Medical History Past Medical History: Hearing Disorder / Deafness, Hyperlipidemia, Hypertension, Liver Disease, Osteoarthritis (OA) Additional Past Medical History / Comment(s): Hx Hepatitis in College. 25% hearing loss in left ear. History of Any Multi-Drug Resistant Organisms: None Reported Past Surgical History: Section, Orthopedic Surgery, Tubal Ligation Additional Past Surgical History / Comment(s): Bilateral cataracts removed with lens implants, Section X2, colonoscopies, cyst removed from left hand carpal tunnel release right hand, retinal repair. Past Anesthesia/Blood Transfusion Reactions: Postoperative Nausea & Vomiting (PONV) Additional Past Anesthesia/Blood Transfusion Reaction / Comment(s): Severe N/V for approx. 12 hrs after surgery. Balance issues. Past Psychological History: No Psychological Hx Reported Smoking Status: Former smoker Past Alcohol Use History: Occasional Additional Past Alcohol Use History / Comment(s): Smoker of one pack per day for about 20 years, quit 20-30 years ago. Past Drug Use History: Marijuana Additional Drug Use History / Comment(s): Medical Marijuana gummies at hs. Aware no use 24 hrs prior to procedure. - Past Family History Father Family Medical History: Cancer, Deep Vein Thrombosis (DVT), Vascular Disorder Additional Family Medical History / Comment(s): Pancreatic cancer. Mother Family Medical History: No Reported History Additional Family Medical History / Comment(s): Mother is alive at age 95 with history of diabetes, coronary artery disease status post stent. Currently residing at [facility]. Brother(s) Additional Family Medical History / Comment(s): Patient is 3 brothers with no major medical problems. Patient has 2 sisters with dementia. Patient's 3 children with no major medical problems. Sister(s) Family Medical History: Cancer Additional Family Medical History / Comment(s): Breast cancer. Medications and Allergies Home Medications Medication Instructions Recorded Confirmed Type Atorvastatin [Lipitor] 20 mg PO DAILY 07/23/20 12/26/21 History Losartan Potassium [Cozaar] 50 mg PO QAM 07/23/20 12/26/21 History Allergies Allergy/AdvReac Type Severity Reaction Status Date / Time codeine AdvReac Vomiting Verified 12/26/21 07:28 morphine AdvReac Vomiting Verified 12/26/21 07:28 Objective - Vital Signs Vital signs: Vital Signs Temp 98.3 F 04/02/23 10:58 Pulse 59 L 04/02/23 10:58 Resp 15 04/02/23 10:58 BP 163/74 04/02/23 10:58 Pulse Ox 96 04/02/23 10:58 FiO2 Intake & Output 04/01/23 04/02/23 04/02/23 18:59 06:59 18:59 Weight 54.431 kg - Constitutional General appearance: Present: cooperative - EENT Eyes: Present: EOMI ENT: Present: hearing grossly normal - Neck Neck: Present: normal ROM - Respiratory Respiratory: bilateral: CTA - Cardiovascular Heart sounds: normal: S1, S2 - Integumentary Integumentary: Present: normal turgor - Musculoskeletal Musculoskeletal: Present: gait normal - Psychiatric Psychiatric: Present: A&O x's 3, appropriate affect, intact judgment & insight - Additional findings Additional findings: Breast Exam: BRA: 38B Inspection: bilateral grade 2/3 ptosis Palpation: Right breast: Multi-positional exam fibrocystic changes no discrete dominant masses or nodules of concern Right axilla: No adenopathy of concern Left breast: Multi-positional exam post surgical and radiation changes no evidence of any dominant masses or nodules of concern; emanation of the lateral chest wall does not reveal any dominant masses or nodules of concern Left axilla: No adenopathy of concern Assessment and Plan Assessment: Impression: Patient status post left breast lumpectomy and sentinel node biopsy for DCIS Patient has completed a course of radiation therapy Patient presently on anastrozole bilateral mamogram 11-17-22 BIRAD 2 due for breast MRI May 2023 Plan: Follow-up examination after MRI of the breast bilateral mammogram November 2023 MRI q 12 months of the breast secondary to CHEK2 mutation; alternates q 6months with mammogram colonoscopy as per Dr. Zhang CC: Dr. Zhang
== END ==
LOC: WWCWWP 10:36
PROVIDERS: ATTEND Surgery
DX: D05.12 Intraductal carcinoma in situ of left breast (principal); E78.5 Hyperlipidemia, unspecified; I10 Essential (primary) hypertension; M19.90 Unspecified osteoarthritis, unspecified site; H91.90 Unspecified hearing loss, unspecified ear; K76.89 Other specified diseases of liver; F12.90 Cannabis use, unspecified, uncomplicated; Z15.09 Genetic susceptibility to other malignant neoplasm; Z15.01 Genetic susceptibility to malignant neoplasm of breast; Z87.891 Personal history of nicotine dependence; Z98.51 Tubal ligation status; Z92.3 Personal history of irradiation; Z79.811 Long term (current) use of aromatase inhibitors; Z88.5 Allergy status to narcotic agent; Z88.8 Allergy status to other drugs, medicaments and biological substances

== ENCOUNTER → 2023-05-13 | Outpatient (CLI) | payer MEDICARE, OTHER ==
--- NOTE | 2023-05-14 12:06 | BMR ---
EXAM DATE: 05/13/2023 EXAM DESCRIPTION: MRI-Breast Bilat (W/WO Contrast) INDICATION: Previous history of left breast cancer with lumpectomy and radiation. Surveillance. COMPARISON: PRIOR MRIs: None available. Correlation to mammograms: Mammogram 11/17/2022. Correlation to ultrasound: None available. CONTRAST: 5 cc Gadobutrol IV gadolinium contrast TECHNIQUE: Study was performed at [facility] with Radiologic interpretation by [facility] Multiplanar multisequence MR imaging of both breasts was performed with a dedicated breast coil. Images were obtained before and after administration of IV gadolinium, using the standard breast mass protocol. Computer aided detection was utilized for interpretation. FINDINGS: LMP: Postmenopausal General breast composition: The breast is heterogeneously dense Background parenchymal enhancement: Mild RIGHT BREAST: The T2 weighted series shows no areas of abnormal signal intensity. Review of the dynamic series shows no early or abnormal enhancement. LEFT BREAST: The T2 weighted series shows postsurgical changes of the left breast.. Review of the dynamic series shows no early or abnormal enhancement. LYMPH NODES: There is no evidence of internal mammary or axillary adenopathy. Miscellaneous findings:The liver is somewhat heterogeneous with possible 3 cm T2 hypo to isointense mass in the posterior right hepatic lobe. IMPRESSION: RIGHT BREAST: No MR evidence of malignancy. LEFT BREAST: No MR evidence of malignancy. Post treatment changes. Incidental findings in the liver including possible 3 cm right hepatic lobe mass. CT with contrast is recommended. OVERALL ASSESSMENT -- BI-RADS 2: Benign MTDD
== END | disposition home or self-care (01) ==
LOC: RADMRIMAIN 11:35
PROVIDERS: ATTEND Radiology Radiation Oncology
DX: C50.312 Malignant neoplasm of lower-inner quadrant of left female breast (principal); Z15.01 Genetic susceptibility to malignant neoplasm of breast; Z17.0 Estrogen receptor positive status [ER+]
CPT/HCPCS: C8908; A9585; 77049

== ENCOUNTER 2023-06-08 15:41 | Emergency (ER) | payer MEDICARE, OTHER ==
--- NOTE | 2023-06-08 16:41 | ED ---
Lower Extremity Injury HPI - General Chief Complaint: Extremity Injury, Lower Stated Complaint: Fall-L ankle/R knee injury Time Seen by Provider: 06/08/23 16:00 Source: patient, RN notes reviewed Mode of arrival: ambulatory Limitations: no limitations - History of Present Illness Initial Comments: 72-year-old female presenting with left ankle pain and right knee pain status post fall prior to arrival. States she was standing up from a chair, rolled her left ankle, and fell to the floor, landing on her right knee. She is able to bear weight. Denies hitting her head or loss of consciousness. Denies blood thinners. Denies numbness or tingling. - Related Data Home Medications Medication Instructions Recorded Confirmed Atorvastatin [Lipitor] 20 mg PO DAILY 07/23/20 04/02/23 Losartan Potassium [Cozaar] 50 mg PO QAM 07/23/20 04/02/23 Anastrozole 1 mg PO DAILY 10/21/22 04/02/23 Vit B12(Unk) 1 tab PO DAILY 10/21/22 04/02/23 Vit D3 (Unk) 1 tab PO DAILY 10/21/22 04/02/23 Escitalopram [Lexapro] 10 mg PO DAILY 04/02/23 04/02/23 Previous Rx's Medication Instructions Recorded Acetaminophen Tab [Tylenol] 650 mg PO Q6H #30 tab 10/23/22 Ibuprofen [Motrin] 600 mg PO Q6HR PRN #40 tab 10/23/22 Allergies Allergy/AdvReac Type Severity Reaction Status Date / Time codeine AdvReac Vomiting Verified 06/08/23 16:02 morphine AdvReac Vomiting Verified 06/08/23 16:02 Review of Systems ROS Statement: Those systems with pertinent positive or pertinent negative responses have been documented in the HPI. ROS Other: All systems not noted in ROS Statement are negative. Past Medical History Past Medical History: Cancer, Hearing Disorder / Deafness, Hyperlipidemia, Hypertension, Liver Disease, Osteoarthritis (OA) Additional Past Medical History / Comment(s): Hx Hepatitis in College. 25% hearing loss in left ear. Breast cancer-left breast. History of Any Multi-Drug Resistant Organisms: None Reported Past Surgical History: Section, Cholecystectomy, Orthopedic Surgery, Tubal Ligation Additional Past Surgical History / Comment(s): Bilateral cataracts removed with lens implants, Section X2, colonoscopies, cyst removed from left hand carpal tunnel release right hand, retinal repair. Past Anesthesia/Blood Transfusion Reactions: Postoperative Nausea & Vomiting (PONV) Additional Past Anesthesia/Blood Transfusion Reaction / Comment(s): Severe N/V for approx. 12 hrs after surgery. Balance issues. Past Psychological History: No Psychological Hx Reported Smoking Status: Former smoker Past Alcohol Use History: Occasional Past Drug Use History: Marijuana - Past Family History Father Family Medical History: Cancer, Deep Vein Thrombosis (DVT), Vascular Disorder Additional Family Medical History / Comment(s): Pancreatic cancer. Mother Family Medical History: No Reported History Additional Family Medical History / Comment(s): Mother is alive at age 95 with history of diabetes, coronary artery disease status post stent. Currently residing at [facility]. Brother(s) Additional Family Medical History / Comment(s): Patient is 3 brothers with no major medical problems. Patient has 2 sisters with dementia. Patient's 3 children with no major medical problems. Sister(s) Family Medical History: Cancer Additional Family Medical History / Comment(s): Breast cancer. General Exam Limitations: no limitations General appearance: alert, in no apparent distress Head exam: Present: atraumatic, normocephalic, normal inspection Respiratory exam: Present: normal lung sounds bilaterally. Absent: respiratory distress, wheezes, rales, rhonchi, stridor Cardiovascular Exam: Present: regular rate, normal rhythm, normal heart sounds. Absent: systolic murmur, diastolic murmur, rubs, gallop, clicks Left Lower Leg exam: Present: normal inspection, full ROM. Absent: tenderness, swelling Ankle exam: Present: full ROM, tenderness, swelling (Diffuse swelling and tenderness over lateral malleolus of left ankle. Full range of motion, sensation, and dorsalis pedis pulses. Cap refill less than 2 seconds.). Absent: abrasion, laceration, deformity Foot/Toe exam: Present: normal inspection, full ROM. Absent: tenderness, swelling Neurovascular tendon exam: Present: no vascular compromise Right Upper Leg exam: Present: normal inspection, full ROM. Absent: tenderness, swelling Knee exam: Present: normal inspection, full ROM. Absent: tenderness, swelling (Negative anterior and posterior drawer. Negative valgus and varus.) Lower Leg exam: Present: normal inspection, full ROM. Absent: tenderness, swelling Neurovascular tendon exam: Present: no vascular compromise. Absent: sensory deficit Course Vital Signs 06/08/23 15:58 Temperature 97.9 F Pulse Rate 61 Respiratory 18 Rate Blood Pressure 130/71 O2 Sat by Pulse 98 Oximetry Procedures - Orthopedic Splinting/Casting Injury #1 Side: left Lower Extremity Injury Location: ankle Lower Extremity Immobilizer: stirrup splint Other Orthopedic Equipment: crutches Additional Comments: Neurovascularly intact status post splint Medical Decision Making - Medical Decision Making Was pt. sent in by a medical professional or institution (, PA, WOOD M[employer]ER, urgent care, hospital, or longterm...) When possible be specific @ -No Did you speak to anyone other than the patient for history (EMS, parent, family, police, friend...)? What history was obtained from this source @ -No Did you review nursing and triage notes (agree or disagree)? Why? @ -I reviewed and agree with nursing and triage notes Were old charts reviewed (outside hosp., previous admission, EMS record, old EKG, old radiological studies, urgent care reports/EKG's, longterm records)? Report findings @ -No old charts were reviewed Differential Diagnosis (chest pain, altered mental status, abdominal pain women, abdominal pain men, vaginal bleeding, weakness, fever, dyspnea, syncope, headache, dizziness, GI bleed, back pain, seizure, CVA, palpatations, mental health, musculoskeletal)? @ -Differential Musculoskeletal Muscular strain, contusion, ligament sprain, fracture, arthritis, septic arthritis, bursitis, cellulitis, muscle spasm, nerve compression, DVT, arterial occlusion, herpes zoster, electrolyte abnormality, tumor.... This is not meant to be in all inclusive list EKG interpreted by me (3pts min.). @ -None X-rays interpreted by me (1pt min.). @ -X-ray of left ankle reveals tiny avulsion fracture of talofibular space, x- ray of right knee reveals no acute process CT interpreted by me (1pt min.). @ -None done U/S interpreted by me (1pt. min.). @ -None done What testing was considered but not performed or refused? (CT, X-rays, U/S, labs)? Why? @ -None What meds were considered but not given or refused? Why? @ -None Did you discuss the management of the patient with other professionals (professionals i.e. , PA, WOOD M[employer]ER, lab, RT, psych nurse, social welfare research worker, theatrical dresser, teacher, targeting acquisition officer, porter sample case)? Give summary @ -No Was smoking cessation discussed for >3mins.? @ -No Was critical care preformed (if so, how long)? @ -No Were there social determinants of health that impacted care today? How? (Homelessness, low income, unemployed, alcoholism, drug addiction, transportation, low edu. Level, literacy, decrease access to med. care, [place] [facility], rehab)? @ -No Was there de-escalation of care discussed even if they declined (Discuss DNR or withdrawal of care, Hospice)? DNR status @ -No What co-morbidities impacted this encounter? (DM, HTN, Smoking, COPD, CAD, Cancer, CVA, ARF, Chemo, Hep., AIDS, mental health diagnosis, sleep apnea, morbid obesity)? @ -None Was patient admitted / discharged? Hospital course, mention meds given and route, prescriptions, significant lab abnormalities, going to OR and other pertinent info. @ -Patient was discharged. Patient was seen and evaluated for left ankle and right knee pain status post fall. Patient is neurovascularly intact. X-ray of left ankle reveals tiny avulsion fracture of talofibular spaces, x-ray right knee reveals no acute process. Stirrup splint applied to left ankle. Crutches given. Orthopedic follow-up given for repeat testing and further evaluation. Supportive care discussed. Patient discharged in stable condition. Case discussed with Dr. Reddy Undiagnosed new problem with uncertain prognosis? @ -No Drug Therapy requiring intensive monitoring for toxicity (Heparin, Nitro, Insulin, Cardizem)? @ -No Were any procedures done? @ -Stirrup splint left ankle Diagnosis/symptom? @ -Left ankle fracture Acute, or Chronic, or Acute on Chronic? @ -Acute Uncomplicated (without systemic symptoms) or Complicated (systemic symptoms)? @ -Uncomplicated Side effects of treatment? @ -No Exacerbation, Progression, or Severe Exacerbation? @ -No Poses a threat to life or bodily function? How? (Chest pain, [place], [place], pneumonia, PE, COPD, DKA, ARF, appy, cholecystitis, CVA, Diverticulitis, Homicidal, Suicidal, threat to staff... and all critical care pts) @ -No Disposition Clinical Impression: Closed left ankle fracture Disposition: HOME SELF-CARE Condition: Stable Instructions (If sedation given, give patient instructions): Ankle Fracture (ED) Additional Instructions: Please follow-up with Ortho in 1 to 3 days. Please return to the Emergency Department if symptoms worsen or any other concerns. Is patient prescribed a controlled substance at d/c from ED?: No Referrals: Karen Echavarria DO [Doctor of Osteopathic Medicine] - 1-2 days Josué Zhang MD [Primary Care Provider] - 1-2 days Time of Disposition: 17:28
[2023-06-08 16:53] VITALS: RESP 18
--- NOTE | 2023-06-08 16:53 | XR ---
EXAMINATION TYPE: XR ankle complete LT DATE OF EXAM: 06/08/2023 COMPARISON: None HISTORY: Injury, pain TECHNIQUE: 3 view left ankle FINDINGS: No displaced fractures are evident. Tiny amount of calcification may be within the ankle mo rtise between the lateral malleolus and the talus. A small avulsion could be considered. The donor si te however is not identified. There is prominent soft tissue swelling over the lateral malleolus. Ank le mortise joint space is otherwise preserved. Displaced fracture is not otherwise evident. Follow up exams can be performed 7-10 days from acute trauma for continued pain. IMPRESSION: 1. Tiny avulsion is not entirely excluded at the talofibular joint space. Prominent soft tissue swel ling is present laterally.
--- NOTE | 2023-06-08 16:55 | XR ---
EXAMINATION TYPE: XR knee complete RT DATE OF EXAM: 06/08/2023 COMPARISON: None HISTORY: Injury, pain, fall TECHNIQUE: 3 view right knee FINDINGS: There is narrowing of the medial compartment joint space. Medial tibial plateau spurring is present. Medial femoral condylar spurring is present. No joint effusion is evident. Posterior patell ar spurring is present superiorly and inferiorly. Follow up exams can be performed 7-10 days from acute trauma for continued pain. IMPRESSION: 1. Medial compartment degenerative changes. 2. No acute osseous abnormality.
[2023-06-08 18:10] VITALS: BP 132/74; PULSE 66; TEMP 98
== END 2023-06-08 17:50 | disposition home or self-care (01) ==
LOC: EC 15:41
DX: S82.892A Other fracture of left lower leg, initial encounter for closed fracture (principal); F12.90 Cannabis use, unspecified, uncomplicated; Z87.891 Personal history of nicotine dependence; Z88.5 Allergy status to narcotic agent; W07.XXXA Fall from chair, initial encounter
CPT/HCPCS: 29515; 99284

== ENCOUNTER → 2023-06-10 | Outpatient (CLI) | payer MEDICARE, OTHER ==
[2023-06-10 09:23] VITALS: BP 134/81; PULSE 65; RESP 17; TEMP 98.1
--- NOTE | 2023-06-10 09:23 | P.PN ---
Subjective Progress Note Date: 06/10/23 Principal diagnosis: DCIS left breast 2021, CHECK 2 mutation DCIS left breast 2021 Leanne is a 71 year old female seen in consultation for Dr. Zhang regarding an abnormal left breast mammogram. Screening mammogram on in which some calcifications were noted in the left breast of concern. A diagnostic left breast mammogram was then performed on [id number] which confirmed grouped coarse calcifications in the lower inner left breast for which a stereotactic core biop sy was recommended. The patient herself did not feel any lumps masses or nodules of concern in either breast. She had not had any surgery of her breast. She had not had any recent trauma or infection of the breast. Approximately 40 years ago after breast-feeding she did have in the right side and inflamed milk duct which needed to be drained, this was not done with a needle aspiration. The patient on [id number] underwent a sterotactic core biopsy of the left breast. 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 It was approximately 1.5 cm in length. It was ER positive GA negative. She developed a hematoma after the procedure. Her case was presented at tumor board on 01/1322. Lumpectomy with sentinel node biopsy was recommended. We'll most likely be recommended for radiation therapy following lumpectomy and hormone therapy. 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 Female breast cancer mutation risk 20-40% by age 79 Second primary within 10 years of first breast cancer diagnosis up to 29% Estimated 5-10% lifetime risk of colon cancer lumpectomy and SNB done on 03-10-22; pathology revealed close medial, lateral, and posterior margins posterior onto the pect muscle re-excision 04-14-22 new margins (-) Note from radiation oncology 08-27-22 Dr. Galdamez reviewed; patient had some mobility issues with her left arm, referred to Physical therapy; completed radiation July 02, 2022 The patient started annestrazole and doing well with it Bilateral mammogram [id number] benign BIRADS 2; secondary to CHEK2 mutation recommend yearly MRI of the breast note 02-25-23 radiation oncology reviewed She is not complaining of any new lumps masses or nodules of concern. She does have a rash over her upper chest and upper extremities. She is going to follow with her primary care doctor with respect to this. Her is presently in rehab secondary to back pain and she is feeling depression secondary to this. 06-10-23 Leanne is a 72-year-old white female status post left breast lumpectomy and sentinel node biopsy on 03-10-2022. This was for a DCIS. Margins were close and reexcision was performed on 04-14-2022. The patient completed radiation therapy on 07-02-2022 Patient presently on anastrozole Bilateral mammogram 11-17-2022 benign BI-RADS 2 Secondary to a CHEK2 mutation she is recommended to undergo yearly MRI of the breast MRI done on 05-13-23 no lesions of concern noted in breast; incidental 3 cm right hepatic mass noted , CT with contrast recommended. Patients May 12, 2023 of pneumonia/COVID she saw dermatology and had a lesion removed from her right arm and a pre- melanoma and will have it removed with wider margins She sprained her left ankle recently has a boot on Caffeine: 4 cups coffee/day nicotine: stopped 30 years ago, used to smoke 1 PPD for 20 years BCP: used for 10 years, stopped using them about age 29 hormones: none Family history: father: pancreatic cancer paternal aunt: breast cancer paternal grandfather: prostate cancer sister: breast cancer daughter: bilateral breast cancer Hormonal history: menarche: 15 , breast fed: yes, age at first : 26 menopause: 57 Surgical History: tubaligation carpel tunnel right wrist colonoscopy done about 1 year ago; following with Dr. Zhang Medical History: hepatitis in collage depression Social History: nicotine: stopped 30 years ago alcohol: occasional; weekly drugs: marijuana gummies for pinched nerve in her shoulder - Constitutional Constitutional: Denies chills, Denies fever - EENT Eyes: denies blurred vision, denies pain Ears: left: decreased hearing, tinnitus Ears, nose, mouth and throat: Denies headache, Denies sore throat - Breasts Breasts: bilateral: as per HPI - Cardiovascular Cardiovascular: Denies chest pain, Denies shortness of breath - Respiratory Respiratory: Denies cough - Gastrointestinal Gastrointestinal: Denies abdominal pain, Denies diarrhea, Denies nausea, Denies vomiting - Genitourinary (Female) Genitourinary: Denies dysuria, Denies hematuria - Menstruation Menstruation: Reports postmenopausal - Musculoskeletal Comment: arthritis both shoulders pain - Integumentary Integumentary: Reports pruritus, Denies rash - Neurological Neurological: Denies numbness, Denies weakness - Psychiatric Psychiatric: Denies anxiety, Denies depression - Endocrine Endocrine: Reports weight change - Hematologic/Lymphatic Comment: none - Allergic/Immunologic Allergic/Immunologic: Reports as per HPI Past Medical History Past Medical History: Hearing Disorder / Deafness, Hyperlipidemia, Hypertension, Liver Disease, Osteoarthritis (OA) Additional Past Medical History / Comment(s): Hx Hepatitis in College. 25% hearing loss in left ear. History of Any Multi-Drug Resistant Organisms: None Reported Past Surgical History: Section, Orthopedic Surgery, Tubal Ligation Additional Past Surgical History / Comment(s): Bilateral cataracts removed with lens implants, Section X2, colonoscopies, cyst removed from left hand carpal tunnel release right hand, retinal repair. Past Anesthesia/Blood Transfusion Reactions: Postoperative Nausea & Vomiting (PONV) Additional Past Anesthesia/Blood Transfusion Reaction / Comment(s): Severe N/V for approx. 12 hrs after surgery. Balance issues. Past Psychological History: No Psychological Hx Reported Smoking Status: Former smoker Past Alcohol Use History: Occasional Additional Past Alcohol Use History / Comment(s): Smoker of one pack per day for about 20 years, quit 20-30 years ago. Past Drug Use History: Marijuana Additional Drug Use History / Comment(s): Medical Marijuana gummies at . Aware no use 24 hrs prior to procedure. - Past Family History Father Family Medical History: Cancer, Deep Vein Thrombosis (DVT), Vascular Disorder Additional Family Medical History / Comment(s): Pancreatic cancer. Mother Family Medical History: No Reported History Additional Family Medical History / Comment(s): Mother is alive at age 95 with history of diabetes, coronary artery disease status post stent. Currently res iding at [facility]. Brother(s) Additional Family Medical History / Comment(s): Patient is 3 brothers with no major medical problems. Patient has 2 sisters with dementia. Patient's 3 children with no major medical problems. Sister(s) Family Medical History: Cancer Additional Family Medical History / Comment(s): Breast cancer. Medications and Allergies Home Medications Medication Instructions Recorded Confirmed Type Atorvastatin [Lipitor] 20 mg PO DAILY 07/23/20 12/26/21 History Losartan Potassium [Cozaar] 50 mg PO QAM 07/23/20 12/26/21 History Allergies Allergy/AdvReac Type Severity Reaction Status Date / Time codeine AdvReac Vomiting Verified 12/26/21 07:28 morphine AdvReac Vomiting Verified 12/26/21 07:28 Objective - Vital Signs Vital signs: Vital Signs Temp 98.1 F 06/10/23 08:47 Pulse 65 06/10/23 08:47 Resp 17 06/10/23 08:47 BP 134/81 06/10/23 08:47 Pulse Ox 97 06/10/23 08:47 FiO2 Intake & Output 06/09/23 06/10/23 06/10/23 18:59 06:59 18:59 Weight 50.802 kg - Constitutional General appearance: Present: cooperative - EENT Eyes: Present: EOMI ENT: Present: hearing grossly normal - Neck Neck: Present: normal ROM - Respiratory Respiratory: bilateral: CTA - Cardiovascular Rhythm: regular Heart sounds: normal: S1, S2 - Integumentary Integumentary: Present: normal turgor - Psychiatric Psychiatric: Present: A&O x's 3, appropriate affect, intact judgment & insight - Additional findings Additional findings: Breast Exam: BRA: 38B Inspection: bilateral grade 2/3 ptosis Palpation: Right breast: Multi-positional exam fibrocystic changes no discrete dominant masses or nodules of concern Right axilla: No adenopathy of concern Left breast: Multi-positional exam post surgical and radiation changes no evidence of any dominant masses or nodules of concern; examination of the lateral chest wall does not reveal any dominant masses or nodules of concern Left axilla: No adenopathy of concern Assessment and Plan Assessment: Impression: Patient status post left breast lumpectomy and sentinel node biopsy for DCIS Patient has completed a course of radiation therapy Patient presently on anastrozole bilateral mamogram 11-17-22 BIRAD 2; Breast MRI 05-13-23 no lesion in the breast ? lesion in the liver due for bilateral mammogram in November 2023 Plan: bilateral mammogram November 2023 with follow up MRI q 12 months of the breast secondary to CHEK2 mutation; alternates q 6months with mammogram colonoscopy as per Dr. Zhang CT scan of liver is going be done today, follow up next week for results CC: Dr. Zhang
== END ==
LOC: WWCWWP 08:28
PROVIDERS: ATTEND Surgery
DX: R92.1 Mammographic calcification found on diagnostic imaging of breast (principal); R92.8 Other abnormal and inconclusive findings on diagnostic imaging of breast; R92.323 Mammographic fibroglandular density, bilateral breasts; D05.12 Intraductal carcinoma in situ of left breast; R21 Rash and other nonspecific skin eruption; Z48.817 Encounter for surgical aftercare following surgery on the skin and subcutaneous tissue; Z92.3 Personal history of irradiation; Z80.3 Family history of malignant neoplasm of breast; Z87.891 Personal history of nicotine dependence; Z88.5 Allergy status to narcotic agent

== ENCOUNTER → 2023-06-10 | Outpatient (CLI) | payer MEDICARE, OTHER ==
[2023-06-10 12:42] LABS: African American GFR (CKD) >90 (>60 ml/min/1.73 sqM); Blood Urea Nitrogen 16 mg/dL (7-17); Non-African American GFR(CKD) 90 (>60 ml/min/1.73 sqM)
--- NOTE | 2023-06-10 13:29 | CT ---
EXAMINATION TYPE: CT abdomen w con CT DLP: 248 mGycm, Automated exposure control for dose reduction was used. DATE OF EXAM: 06/10/2023 1:14 PM COMPARISON: 07/23/2020 CLINICAL INDICATION:Female, 72 years old with history of C50.312,Z15.01,Z17.0; liver lesion TECHNIQUE: Axial CT abdomen w con;Sagittal and coronal reformats were created on a separate workstat ion. Contrast used:100 mL of Isovue 300 with IV Contrast, (none if empty) Oral contrast used: with Oral Contrast (none if empty) FINDINGS: LOWER CHEST: Unremarkable ABDOMEN LIVER: Multiple subcentimeter hypoattenuating structures are demonstrated throughout the liver, which are too small to accurately characterize but statistically likely to represent simple hepatic cysts. No suspicious suspicious liver lesions are definitely visualized. GALLBLADDER AND BILE DUCTS: Gallbladder is surgically absent with mild intrahepatic and extra hepatic biliary dilatation likely physiologic and a postcholecystectomy change. No evidence of choledocholit hiasis. PANCREAS: No definitive pancreatic head lesion thought to be seen on 12/24/2022 ultrasound. SPLEEN: Unremarkable. ADRENAL GLANDS: Unremarkable. KIDNEYS AND URETERS: No evidence of hydronephrosis or renal calculus. The ureters are unremarkable. Right adrenal cortical cysts. STOMACH AND BOWEL: No evidence of bowel obstruction. PERITONEUM/RETROPERITONEUM: No evidence of pneumoperitoneum or free fluid. VASCULATURE: No evidence of aortic aneurysm. MUSCULOSKELETAL: No acute osseous abnormalities LYMPH NODES: No gross evidence for lymphadenopathy. SOFT TISSUE/ABDOMINAL WALL: Unremarkable IMPRESSION: Non-liver mass protocol technique limits evaluation, scattered hypodense areas likely representing cy sts in the absence of risk factors.
== END | disposition home or self-care (01) ==
LOC: RADCTMAIN 11:58
PROVIDERS: ATTEND Radiology Radiation Oncology
DX: C50.312 Malignant neoplasm of lower-inner quadrant of left female breast (principal); Z15.01 Genetic susceptibility to malignant neoplasm of breast; Z17.0 Estrogen receptor positive status [ER+]
CPT/HCPCS: 82565; 84520; 74160; 36415; Q9967

== ENCOUNTER → 2023-11-19 | Outpatient (CLI) | payer MEDICARE, OTHER ==
--- NOTE | 2023-11-19 10:50 | MM ---
Reason for Exam: Hx of breast cancer, conservation therapy. Last screening mammogram was performed 12 month(s) ago. Patient History: Menarche at age 12. First Full-Term at age 28. Postmenopausal. Patient has history of breast feeding. Breast cancer, left, age 71. Breast cancer, left, age 71. Previous chest radiation therapy at age 71. Patient used Hormonal Contraceptives for 15 years. 03/10/2022, Lumpectomy on the Left side. 03/10/2022, Malignant MG pre op needle loc LT on the left side. 12/26/2021, Malignant MG stereo VAD BX LT on the left side. Sister had breast cancer, age 59. Daughter had breast cancer, age 42. Prior Study Comparison: 06/27/2018 Bilateral Screening Mammogram, [facility]. 11/14/2021 Bilateral MG 3D screening mammo w/cad, [facility]. 11/24/2021 Left MG 3D work up w/cad LT, [facility]. 11/17/2022 Bilateral MG 3D diag mammo w/cad [facility], [facility]. 05/13/2023 Bilateral MR breast bilat wo/w con, [facility]. Tissue Density: The breasts are heterogeneously dense, which may obscure small masses. Findings: Analyzed By CAD. Postoperative changes of left-sided lumpectomy and radiation therapy change. No evidence for recurrent or residual mass. No new masses identified within either breast. No suspicious microcalcifications present. Overall Assessment: Benign, BI-RAD 2 Management: Diagnostic Mammogram of both breasts in 1 year. . Results were given to the patient verbally at the time of exam. Patient should continue monthly self-breast exams. A clinical breast exam by your physician is recommended on an annual basis. This exam should not preclude additional follow-up of suspicious palpable abnormalities. Note on Pushpa scores and lifetime risk: 1. A Pushpa score greater than 3% is considered moderate risk. If this is the case, consider specialist referral to assess eligibility for a risk reducing agent. 2. If overall lifetime risk for the development of breast cancer is 20% or higher, the patient may qualify for future screening with alternating mammogram and breast MRI. [facility], Workstation: 3, 11/19/2023 10:47 AM. Electronically signed and approved by: iJm Currie M.D. Radiolog[facility]
== END | disposition home or self-care (01) ==
LOC: RADMAMWWP 10:19
PROVIDERS: ATTEND Radiology Radiation Oncology
CPT/HCPCS: 77062; 77066

== ENCOUNTER 2023-12-12 12:50 | Emergency (ER) | payer MEDICARE, OTHER ==
[2023-12-12 12:54] VITALS: RESP 16
--- NOTE | 2023-12-12 13:02 | ED ---
General Adult HPI - General Chief complaint: Dizziness Stated complaint: Vomiting,Dizziness Time Seen by Provider: 12/12/23 13:01 Source: patient Mode of arrival: ambulatory Limitations: no limitations - History of Present Illness Initial comments: Patient presents to the ED with her daughter for evaluation. Patient states that she developed sudden onset of dizziness after bending over and standing up about 2 hours ago today. Patient describes her dizziness as a spinning sensation. Patient states that her dizziness is worse with changes in position and when turning her head. Patient states that she has had associated nausea and vomiting. Patient also states that she had 1 loose bowel movement today as well. Patient states that she did have some abdominal cramping when she had her bowel movement, but she denies having any abdominal cramping or pain since then. Patient also states that her grandchild accidentally bumped into her rib cage with his head a couple of days ago, and she has been having right lower lateral rib pain since then, which she states is worse with palpation. Patient denies fever or chills, headache, focal numbness/weakness/neuro deficit, visual changes, speech difficulty, otalgia, left-sided chest pain, cough or cold symptoms, dyspnea, palpitations, syncope, abdominal pain, nausea/vomiting/diarrhea, bloody or melanotic stool, dysuria or urinary symptoms, leg or calf swelling or pain or any other symptoms or complaints. - Related Data Home Medications Medication Instructions Recorded Confirmed Atorvastatin [Lipitor] 20 mg PO DAILY 07/23/20 06/10/23 Losartan Potassium [Cozaar] 50 mg PO QAM 07/23/20 06/10/23 Anastrozole 1 mg PO DAILY 10/21/22 06/10/23 Vit B12(Unk) 1 tab PO DAILY 10/21/22 06/10/23 Vit D3 (Unk) 1 tab PO DAILY 10/21/22 06/10/23 Escitalopram [Lexapro] 10 mg PO DAILY 04/02/23 06/10/23 Previous Rx's Medication Instructions Recorded Acetaminophen Tab [Tylenol] 650 mg PO Q6H #30 tab 10/23/22 Ibuprofen [Motrin] 600 mg PO Q6HR PRN #40 tab 10/23/22 Meclizine [Antivert] 25 mg PO TID PRN #12 tab 12/12/23 Allergies Allergy/AdvReac Type Severity Reaction Status Date / Time codeine AdvReac Vomiting Verified 12/12/23 12:53 morphine AdvReac Vomiting Verified 12/12/23 12:53 Review of Systems ROS Statement: Those systems with pertinent positive or pertinent negative responses have been documented in the HPI. ROS Other: All systems not noted in ROS Statement are negative. Past Medical History Past Medical History: Cancer, Hearing Disorder / Deafness, Hyperlipidemia, Hypertension, Liver Disease, Osteoarthritis (OA) Additional Past Medical History / Comment(s): Hx Hepatitis in College. 25% hearing loss in left ear. Breast cancer-left breast. History of Any Multi-Drug Resistant Organisms: None Reported Past Surgical History: Section, Cholecystectomy, Orthopedic Surgery, Tubal Ligation Additional Past Surgical History / Comment(s): Bilateral cataracts removed with lens implants, Section X2, colonoscopies, cyst removed from left hand c arpal tunnel release right hand, retinal repair. Past Anesthesia/Blood Transfusion Reactions: Postoperative Nausea & Vomiting (PONV) Additional Past Anesthesia/Blood Transfusion Reaction / Comment(s): Severe N/V for approx. 12 hrs after surgery. Balance issues. Past Psychological History: No Psychological Hx Reported Smoking Status: Former smoker Past Alcohol Use History: Occasional Past Drug Use History: Marijuana - Past Family History Father Family Medical History: Cancer, Deep Vein Thrombosis (DVT), Vascular Disorder Additional Family Medical History / Comment(s): Pancreatic cancer. Mother Family Medical History: No Reported History Additional Family Medical History / Comment(s): Mother is alive at age 95 with history of diabetes, coronary artery disease status post stent. Currently residing at [facility]. Brother(s) Additional Family Medical History / Comment(s): Patient is 3 brothers with no major medical problems. Patient has 2 sisters with dementia. Patient's 3 children with no major medical problems. Sister(s) Family Medical History: Cancer Additional Family Medical History / Comment(s): Breast cancer. General Exam Limitations: no limitations General appearance: alert Head exam: Present: atraumatic, normocephalic Eye exam: Present: normal appearance, PERRL, EOMI. Absent: nystagmus ENT exam: Present: mucous membranes moist, TM's normal bilaterally Respiratory exam: Present: normal lung sounds bilaterally, other (Reproducible right inferolateral chest wall tenderness; no chest wall crepitation or deformity is noted). Absent: respiratory distress, wheezes, rales, rhonchi, stridor Cardiovascular Exam: Present: normal rhythm, bradycardia, normal heart sounds, other (Normal radial pulses bilaterally) GI/Abdominal exam: Present: soft. Absent: distended, tenderness, guarding Extremities exam: Present: full ROM, other (Negative Homans' sign bilaterally). Absent: tenderness, pedal edema, calf tenderness Neurological exam: Present: alert, oriented X3, CN II-XII intact. Absent: motor sensory deficit Psychiatric exam: Present: normal affect Skin exam: Present: warm, dry, intact, normal color Course Vital Signs 12/12/23 12/12/23 12/12/23 12:51 13:08 15:16 Temperature 97.4 F L 97.9 F Pulse Rate 58 L 61 61 Respiratory 16 16 Rate Blood Pressure 156/82 151/86 144/72 O2 Sat by Pulse 100 98 Oximetry - Reevaluation(s) Reevaluation #1: 12/12/23 15:28 Patient states that her symptoms have significantly improved with ED treatment. Patient is now ambulatory in the ED without difficulty. Patient denies development of any new symptoms while in the ED. Patient and daughter are aware the patient's test results, and patient feels comfortable being discharged at this time. She was counseled about dizziness/vertigo, nausea/vomiting and rib contusions. She was clearly explained return and follow-up instructions. She was instructed to follow-up closely with her primary care provider. She feels comfortable with this plan. EKG Findings - EKG Comments: EKG Findings:: ED physician interpretation (interpreted by me): Sinus bradycardia, ventricular rate of 57 bpm, no ectopy, normal NE and QRS intervals, normal QT interval, normal axis, no ST or T wave abnormality Medical Decision Making - Medical Decision Making Was pt. sent in by a medical professional or institution (, PA, PAINT MAKER, urgent care, hospital, or group home...) When possible be specific @ -No Did you speak to anyone other than the patient for history (EMS, parent, family, police, friend...)? What history was obtained from this source @ -No Did you review nursing and triage notes (agree or disagree)? Why? @ -I reviewed and agree with nursing and triage notes Were old charts reviewed (outside hosp., previous admission, EMS record, old EKG, old radiological studies, urgent care reports/EKG's, group home records)? Report findings @ -No old charts were reviewed Differential Diagnosis (chest pain, altered mental status, abdominal pain women, abdominal pain men, vaginal bleeding, weakness, fever, dyspnea, syncope, headache, dizziness, GI bleed, back pain, seizure, CVA, palpatations, mental health, musculoskeletal)? @ -Differential Dizziness: Benign paroxysmal positional Vertigo, Meniere's disease, acoustic neuroma, vertebrobasilar insufficiency, cerebellar stroke, hypovolemic, arrhythmia, coronary artery syndrome, anemia, this is not meant to be an all-inclusive list EKG interpreted by me (3pts min.). @ -As above X-rays interpreted by me (1pt min.). @ -Right ribs/chest x-rays were reviewed myself and showed no evidence for acute/displaced rib fracture. A subtle right upper lobe infiltrate is noted. I agree with the radiologist's interpretation as above. CT interpreted by me (1pt min.). @ -Noncontrast head CT was reviewed myself and shows no acute intracranial abnormality. U/S interpreted by me (1pt. min.). @ -None done What testing was considered but not performed or refused? (CT, X-rays, U/S, labs)? Why? @ -None What meds were considered but not given or refused? Why? @ -None Did you discuss the management of the patient with other professionals (professionals i.e. , PA, PAINT MAKER, lab, RT, psych nurse, social service liaison, lead applications developer, teacher, first aid officer, disease case manager)? Give summary @ -No Was smoking cessation discussed for >3mins.? @ -No Was critical care preformed (if so, how long)? @ -No Were there social determinants of health that impacted care today? How? (Homelessness, low income, unemployed, alcoholism, drug addiction, transportation, low edu. Level, literacy, decrease access to med. care, detention, rehab)? @ -No Was there de-escalation of care discussed even if they declined (Discuss DNR or withdrawal of care, Hospice)? DNR status @ -No What co-morbidities impacted this encounter? (DM, HTN, Smoking, COPD, CAD, Cancer, CVA, ARF, Chemo, Hep., AIDS, mental health diagnosis, sleep apnea, morbid obesity)? @ -None Was patient admitted / discharged? Hospital course, mention meds given and route, prescriptions, significant lab abnormalities, going to OR and other pertinent info. @ -Patient's history and symptoms are suggestive of positional vertigo. Patient has been treated with IV fluids, IV Benadryl, IV Zofran and oral meclizine in the ED with significant improvement in her symptoms. Patient has been ambulatory in the ED without difficulty. Patient's EKG, labs and head CT are fairly unremarkable. Patient is aware of all of her test results, and she feels comfortable being discharged home at this time. Patient is aware of her subtle right upper lobe infiltrate on chest x-ray and recommendation to obtain a follow-up chest x-ray in 3 months. Will discharge patient home with her daughter at this time. Undiagnosed new problem with uncertain prognosis? @ -No Drug Therapy requiring intensive monitoring for toxicity (Heparin, Nitro, Insulin, Cardizem)? @ -No Were any procedures done? @ -No Diagnosis/symptom? @ -Dizziness/suspected positional vertigo, nausea and vomiting Acute, or Chronic, or Acute on Chronic? @ -Acute Uncomplicated (without systemic symptoms) or Complicated (systemic symptoms)? @ -Default Side effects of treatment? @ -No Exacerbation, Progression, or Severe Exacerbation? @ -No Poses a threat to life or bodily function? How? (Chest pain, USA, MD, pneumonia, PE, COPD, DKA, ARF, appy, cholecystitis, CVA, Diverticulitis, Homicidal, Suicidal, threat to staff... and all critical care pts) @ -No - Lab Data Result diagrams: 12/12/23 13:15 12/12/23 13:15 Lab Results 12/12/23 12/12/23 12/12/23 Range/Units 13:15 13:15 13:15 WBC 7.6 (3.8-10.6) k/uL RBC 4.13 (3.80-5.40) m/uL Hgb 13.3 (11.4-16.0) gm/dL Hct 40.6 (34.0-46.0) % MCV 98.2 (80.0-100.0) fL MCH 32.3 (25.0-35.0) pg MCHC 32.9 (31.0-37.0) g/dL RDW 11.9 (11.5-15.5) % Plt Count 184 (150-450) k/uL MPV 7.8 Neutrophils % 67 % Lymphocytes % 24 % Monocytes % 4 % Eosinophils % 2 % Basophils % 1 % Neutrophils # 5.2 (1.3-7.7) k/uL Lymphocytes # 1.9 (1.0-4.8) k/uL Monocytes # 0.3 (0-1.0) k/uL Eosinophils # 0.2 (0-0.7) k/uL Basophils # 0.1 (0-0.2) k/uL Sodium 140 (137-145) mmol/L Potassium 3.9 (3.5-5.1) mmol/L Chloride 108 H (98-107) mmol/L Carbon Dioxide 26 (22-30) mmol/L Anion Gap 6 mmol/L BUN 20 H (7-17) mg/dL Creatinine 0.81 (0.52-1.04) mg/dL Est GFR (CKD-EPI)AfAm 83 (>60 ml/min/1.73 sqM) Est GFR (CKD-EPI)NonAf 72 (>60 ml/min/1.73 sqM) Glucose 114 H (74-99) mg/dL Calcium 9.6 (8.4-10.2) mg/dL Total Bilirubin 0.6 (0.2-1.3) mg/dL AST 25 (14-36) U/L ALT 17 (4-34) U/L Alkaline Phosphatase 78 (38-126) U/L Troponin I <0.012 (0.000-0.034) ng/mL Total Protein 6.9 (6.3-8.2) g/dL Albumin 4.5 (3.5-5.0) g/dL Lipase 290 (23-300) U/L - Radiology Data Noncontrast head CT: 1. No acute intracranial process. 2. Nonspecific white matter changes, likely secondary to chronic small vessel ischemic disease. Right rib/chest x-rays: 1. No acute displaced rib fractures identified. 2. Minimal blunting bilateral costophrenic angles. Correlate for small effusions. 3. Subtle infiltrate within the right upper lung field. Follow-up exam in 3 months is recommended to document resolution. 4. Tenting of the left diaphragm compatible with atelectasis. Disposition Clinical Impression: Dizziness, Nausea and vomiting, Contusion of rib on right side Narrative: Suspected positional vertigo Disposition: HOME SELF-CARE Condition: Stable Instructions (If sedation given, give patient instructions): Dizziness (ED), Vertigo (ED), Acute Nausea and Vomiting (ED), Contusion in Adults (ED) Additional Instructions: Return to the ER immediately should you develop new or worsening pain, numbness or weakness, feeling faint or fainting, persistent vomiting, a fever, shortness of breath, or new or worsening symptoms. Follow-up closely with your primary care provider. Prescriptions: Meclizine [Antivert] 25 mg PO TID PRN #12 tab PRN Reason: Vertigo Is patient prescribed a controlled substance at d/c from ED?: No Referrals: Josué Zhang MD [Primary Care Provider] - 1-2 days Time of Disposition: 15:34
[2023-12-12 13:14] VITALS: PULSE 61
[2023-12-12] MEDS: ONDANSETRON 4 MG/2 ML VIAL IVP STA (13:23)
[2023-12-12 13:25] LABS: Basophils # (A) 0.1 k/uL (0-0.2); Basophils % (A) 1 %; Eosinophils # (A) 0.2 k/uL (0-0.7); Eosinophils % (A) 2 %; HCT 40.6 % (34.0-46.0); HGB 13.3 gm/dL (11.4-16.0); Lymphocytes # (A) 1.9 k/uL (1.0-4.8); Lymphocytes % (A) 24 %; MCH 32.3 pg (25.0-35.0); MCHC 32.9 g/dL (31.0-37.0); MCV 98.2 fL (80.0-100.0); Mean Platelet Volume 7.8; Monocytes # (A) 0.3 k/uL (0-1.0); Monocytes % (A) 4 %; Neutrophils # (A) 5.2 k/uL (1.3-7.7); Neutrophils % (A) 67 %; Platelet Count 184 k/uL (150-450); RBC 4.13 m/uL (3.80-5.40); RDW 11.9 % (11.5-15.5); WBC 7.6 k/uL (3.8-10.6)
[2023-12-12] MEDS: SODIUM CHLORIDE 0.9% 500 ML 500 ML IV STA (13:26)
[2023-12-12] MEDS: diphenhydrAMINE 50 MG/ML 1 ML VIAL IVP STA (13:26)
[2023-12-12] MEDS: MECLIZINE 12.5 MG TAB PO STA (13:27)
[2023-12-12 13:39] LABS: ALT 17 U/L (4-34); AST 25 U/L (14-36); African American GFR (CKD) 83 (>60 ml/min/1.73 sqM); Albumin 4.5 g/dL (3.5-5.0); Alkaline Phosphatase 78 U/L (38-126); Anion Gap 6 mmol/L; Blood Urea Nitrogen 20 mg/dL (7-17); Calcium 9.6 mg/dL (8.4-10.2); Carbon Dioxide 26 mmol/L (22-30); Chloride 108 mmol/L (98-107); Glucose 114 mg/dL (74-99); Lipase 290 U/L (23-300); Non-African American GFR(CKD) 72 (>60 ml/min/1.73 sqM); Potassium 3.9 mmol/L (3.5-5.1); Sodium 140 mmol/L (137-145); Total Bilirubin 0.6 mg/dL (0.2-1.3); Total Protein 6.9 g/dL (6.3-8.2)
--- NOTE | 2023-12-12 14:10 | XR ---
EXAMINATION TYPE: XR ribs RT w pa chest xray DATE OF EXAM: 12/12/2023 COMPARISON: 07/23/2020 HISTORY: Right inferior lateral rib pain, status post contusion TECHNIQUE: 2 views of the right ribs supplemented with AP chest FINDINGS: No displaced rib fractures on the chest film. No pneumothorax evident. Heart size is normal . Pulmonary vasculature is normal. There is some minimal increased density within the right upper maximilian g field. Follow-up chest x-ray recommended in 3 months. Tenting of the left diaphragm is compatible s ome atelectasis. There is minimal blunting of the costophrenic angles. Minimal pleural effusions may be present. No displaced rib fractures identified rib images. IMPRESSION: 1. No acute displaced rib fractures identified. 2. Minimal blunting bilateral costophrenic angles. Correlate for small effusions. 3. Subtle infiltrate within the right upper lung field. Follow-up exam in 3 months is recommended to document resolution. 4. Tenting of the left diaphragm compatible with atelectasis. [facility], Workstation: [email or web address], 12/12/2023 2:08 PM
--- NOTE | 2023-12-12 14:11 | CT ---
EXAMINATION TYPE: CT brain wo con DATE OF EXAM: 12/12/2023 1:55 PM COMPARISON: 06/15/2017. CLINICAL INDICATION: Female, 73 years old with history of dizziness, vertigo, dizziness TECHNIQUE: Brain: Axial CT images of the brain were obtained with coronal and sagittal reformats created and rev iewed. Contrast used: None. Oral contrast used: None. CT DLP: 1066.4 mGycm, Automated exposure control for dose reduction was used. FINDINGS: Brain: Extra-axial spaces: No abnormal extra-axial fluid collections. Ventricular system: Dilatation in proportion to cerebral atrophy. Cerebral parenchyma: Cerebral atrophy. No acute intraparenchymal hemorrhage or mass effect. The avila -white junction is well differentiated. Scattered hypoattenuating areas are seen within the white mat ter. Cerebellum: Unremarkable. Mass effect: No evidence of midline shift. Intracranial vasculature: Atherosclerotic calcifications of the intracranial vessels. Soft tissues: Normal. Calvarium/osseous structures: No depressed skull fracture. Paranasal sinuses and mastoid air cells: Mild scattered paranasal sinus disease. Visualized orbits: Orbital contents are intact. IMPRESSION: 1. No acute intracranial process. 2. Nonspecific white matter changes, likely secondary to chronic small vessel ischemic disease. [facility], , 12/12/2023 2:09 PM
[2023-12-12 15:16] VITALS: BP 144/72; TEMP 97.9
[2023-12-12] MEDS: ONDANSETRON 4 MG ODT STARTER PACK 2 TAB BTL PO STA (15:39)
== END 2023-12-12 15:46 | disposition home or self-care (01) ==
LOC: EC 12:50
DX: S20.211A Contusion of right front wall of thorax, initial encounter (principal); R11.2 Nausea with vomiting, unspecified; R42 Dizziness and giddiness; Z87.891 Personal history of nicotine dependence; Z88.5 Allergy status to narcotic agent; X58.XXXA Exposure to other specified factors, initial encounter
CPT/HCPCS: 36415; 93005; 80053; 83690; 84484; 85025; 71101; 70450; 99285; 96374; 96375; 96361; J1200; J2405; S0119

== ENCOUNTER → 2023-12-13 | Outpatient (CLI) | payer MEDICARE, OTHER ==
--- NOTE | 2023-12-13 14:23 | US ---
EXAMINATION TYPE: US abdomen complete DATE OF EXAM: 12/13/2023 COMPARISON: NONE CLINICAL INDICATION: Female, 73 years old with history of C50.912 MALIGNANT NEOPLASM OF UNSPECIFIED S ITE OF; Weight loss Hx of Breast Ca. TECHNIQUE: Grayscale and color Doppler imaging of the abdomen was performed. FINDINGS: EXAM MEASUREMENTS: Liver Length: 13.5 cm Gallbladder Wall: Surgically absent CBD: .5 cm Spleen: 6.3 cm Right Kidney: 9.2 x 4.4 x 5.2 cm Left Kidney: 8.9 x 4.6 x 3.2 cm POWER OPERATOR NOTES: Pancreas: Tail obscured by overlying bowel gas Liver: wnl Gallbladder: Surgically absent Evidence for sonographic Morton's sign: No CBD: wnl Spleen: wnl Right Kidney: wnl Left Kidney: wnl Upper IVC: wnl Abd Aorta: wnl The liver is homogenous. The intrahepatic portion of the IVC and proximal abdominal aorta are within normal limits. Common bile duct is unremarkable. The visualized portions of the pancreas are homog enous. The spleen is unremarkable. Kidneys are symmetric and free of hydronephrosis. No renal lesi ons are seen. IMPRESSION: Unremarkable study [facility], , 12/13/2023 2:21 PM
--- NOTE | 2023-12-13 14:43 | US ---
EXAMINATION TYPE: US thyroid st tissue head/neck DATE OF EXAM: 12/13/2023 COMPARISON: 12/24/2022 CLINICAL INDICATION: Female, 73 years old with history of C50.912 MALIGNANT NEOPLASM OF UNSPECIFIED S ITE OF; Hx of Breast Ca weight loss. TECHNIQUE: Grayscale and color Doppler imaging of the thyroid gland. FINDINGS: GLAND SIZE: Right Lobe: 4.9 x 1.8 x 1.2 cm Overall Parenchyma: homogeneous Left Lobe: 4.9 x 1.7 x 1.5 cm Overall Parenchyma: homogeneous Isthmus Thickness: 0.18 cm NODULES RIGHT: # of nodules measured on right: 0 LEFT: # of nodules measured on left: 1 1. 1.0 X .7 x 1.0 cm, mid , solid or almost completely solid, hypoechoic nodule, which is wider usha n tall, with smooth margins, without echogenic foci. Prior size: No previous. ISTHMUS: # of nodules measured in the isthmus: 0 Bilateral neck scanned, no evidence of lymphadenopathy. IMPRESSION: Mildly Suspicious: FNA if ? 2.5 cm; Follow if ? 1.5 cm at 1, 3, and 5 y 2017 ACR TI-RADS LEVEL: TR3 *Highest TI-RADS level nodule reported [email or web address] [facility], , 12/13/2023 2:41 PM
== END | disposition home or self-care (01) ==
LOC: RADUSWWP 07:13
DX: C50.912 Malignant neoplasm of unspecified site of left female breast (principal); Z17.0 Estrogen receptor positive status [ER+]; Z15.01 Genetic susceptibility to malignant neoplasm of breast; Z15.89 Genetic susceptibility to other disease; Z15.09 Genetic susceptibility to other malignant neoplasm; Z15.02 Genetic susceptibility to malignant neoplasm of ovary; Z85.3 Personal history of malignant neoplasm of breast
CPT/HCPCS: 76536; 76700

== ENCOUNTER → 2024-05-24 | Outpatient (CLI) | payer MEDICARE, OTHER ==
--- NOTE | 2024-05-29 11:18 | BMR ---
EXAM DATE: 05/24/2024 EXAM DESCRIPTION: MRI-Breast Bilat (W/WO Contrast) INDICATION: High risk screening. History of left breast cancer status post breast conserving therapy. COMPARISON: Comparison was made to prior relevant imaging available in PACS TECHNIQUE: Multiplanar multisequence breast MRI was performed prior to and after administration of 4.5 mL of Gadobutrol intravenously. Post processing was performed utilizing a [employer] workstation. The technical portion of this study was performed at [facility] with radiological interpretation by [facility] radiology. FINDINGS: There is minimal, symmetric background parenchymal enhancement in breasts that are composed of heterogeneous fibroglandular tissue. RIGHT BREAST: Review of the dynamic contrast enhanced series shows linear non mass enhancement measuring approximately 1.3 cm in length at 1-2 o'clock position mid depth of the breast (approximately 2-3 cm from the nipple). Otherwise, no rapidly enhancing masses, suspicious enhancement patterns or other abnormalities. The T2 weighted series show no abnormality. LEFT BREAST: Postsurgical changes are present in the left breast. Review of the dynamic contrast enhanced series shows no rapidly enhancing masses, suspicious enhancement pattern or other abnormalities. The T2 weighted series show no abnormality. LYMPH NODES: No axillary or internal mammary lymphadenopathy. IMPRESSION: Right breast: BI-RADS Category 4-suspicious. A 1.3 cm in length non mass enhancement at 1-2 o'clock position mid depth of the breast. Recommendation: Second-look ultrasound with ultrasound-guided biopsy if there is sonographic correlate. If no sonographic correlate, recommend MRI guided biopsy for definitive diagnosis. Left breast: BI-RADS Category 2-benign. Postsurgical changes. No MR evidence of malignancy. Recommendation: Routine screening with MRI in 1 year. OVERALL ASSESSMENT- BI-RADS 4 ANNUAL SCREENING BREAST MRI IN ADDITION TO MAMMOGRAPHY IS RECOMMENDED IN PATIENTS WITH LIFETIME RISK OF BREAST CANCER >20% MTDD
== END | disposition home or self-care (01) ==
LOC: RADMRIMAIN 08:46
PROVIDERS: ATTEND Radiology Radiation Oncology
DX: C50.312 Malignant neoplasm of lower-inner quadrant of left female breast (principal)
CPT/HCPCS: C8908; A9585; 77049